=== PATIENT | female | born 1990 | race Caucasian/White ===

== ENCOUNTER 2018-02-01 20:30 | Emergency (ER) | payer MEDICAID, OTHER ==
[~2018-02-01] VITALS: Ht 170.2 cm; Wt 113.4 kg
[~2018-02-01 20:30] MED LIST: CRUT1EAC16 MC; ESTR-3; HYOS0.1283 SL; KETO10TA PO; TRAM50TA2 PO
--- NOTE | 2018-02-01 21:04 | Diagnostic Imaging Report ---
INDICATION: Fever and cough PA and lateral chest obtained at 9:19 p.m. Heart and mediastinal silhouette are normal in appearance. The lungs are clear. There is no pneumothorax or pleural fluid. IMPRESSION: Negative chest. Dictated by: Dictated on workstation # [id number]
[2018-02-01] MEDS ORDERED: AMOX-358 PO (21:24)
[2018-02-01] MEDS ORDERED: AUGMENTIN 875 MG TAB (AMOXICILLIN/CLAVULANATE) PO STA (21:24)
--- NOTE | 2018-02-01 21:24 | ED Respiratory ---
General Chief Complaint: Respiratory Problems Stated Complaint: POSS PNUEMONIA Nursing Triage Note: PT AMBULATED TO RM 6 W/O DIFFICULTIES. PT STATES SHE HAS BEEN RUNNING FEVER AND HAD COUGH FOR APPROXIMATELY 2 WEEKS. PT STATES SHE IS HAVING SINUS DRAINAGE AND COUGHING UP CLEAR/YELLOW SPUTUM. PT STATES FEVER HAS BEEN 101.2. PT LAST TOOK IBU AT 1840. Source: patient Exam Limitations: no limitations History of Present Illness Date Seen by Provider: Feb 01, 2018 Time Seen by Provider: 20:40 Initial Comments Here with report of 2 weeks of intermittent fever, cough, runny nose, sinus drainage, sinus congestion and chest congestion. He did take ibuprofen tonight. States it was worse overall tonight so she presented to the ER. Denies nausea or vomiting. Denies problems with the bathroom. Timing/Duration: week, getting worse Severity: moderate Prior Episodes/Possible Cause: occasional episodes Associated Symptoms: cough, fever/chills, nasal congestion, nasal drainage, shortness of breath, sinus infection; No sore throat, No wheezing Allergies and Home Medications Allergies Coded Allergies: codeine (Unverified Allergy, Unknown, 01/29/15) latex (Unverified Allergy, Unknown, 01/29/15) Uncoded Allergies: BEE STING (Allergy, Unknown, 01/29/15) Home Medications Hyoscyamine Sulfate 0.125 Mg Tab.subl, 1-2 TAB SL Q4H Prescribed by: STEVE ANTONIO on 09/29/152104 Ketorolac Tromethamine 10 Mg Tablet, 10 MG PO Q6H Prescribed by: STEVE ANTONIO on 09/29/152104 Tramadol Hcl 50 Mg Tablet, 50 MG PO Q4H PRN for PAIN Prescribed by: STEPHEN OCONNOR on 01/29/15 1620 Patient Home Medication List Home Medication List Reviewed: Yes Review of Systems Constitutional: see HPI; No chills; fever EENTM: no symptoms reported Respiratory: see HPI, cough, short of breath; No wheezing Cardiovascular: no symptoms reported Gastrointestinal: no symptoms reported Genitourinary: no symptoms reported Musculoskeletal: no symptoms reported Skin: no symptoms reported Psychiatric/Neurological: No Symptoms Reported Past Ankthdp-Vxrucg-Tqgvbo Hx Past Med/Social Hx: Reviewed Nursing Past Med/Soc Hx Patient Social History Alcohol Use: Denies Use Recreational Drug Use: No 2nd Hand Smoke Exposure: No Recent Foreign Travel: No Contact w/Someone Who Travel: No Recent Infectious Disease Expo: No Physical Abuse: No Sexual Abuse: No Seasonal Allergies Seasonal Allergies: No Past Medical History Surgeries: Yes (OVARIAN CYST REMOVAL AGE 14) Adenoidectomy, Tonsillectomy Respiratory: No Cardiac: No Neurological: Yes Headaches /Migraines : No Last Menstrual Period: Jan 02, 2018 Reproductive Disorders: Yes Female Reproductive Disorders: Menstrual Problems, Ovarian Cyst, Polycystic Ovarian Dis Genitourinary: No Gastrointestinal: Yes Irritable Bowel Musculoskeletal: No Endocrine: No Cancer: No Psychosocial: No Nursing Suicide Risk Score: 0 Integumentary: No Blood Disorders: Yes (VON WELLABRAND'S DISEASE) Family Medical History Reviewed Nursing Family Hx Physical Exam Vital Signs Vital Signs - First Documented 02/01/18 20:39 Temp 98.3 Pulse 98 Resp 16 B/P (MAP) 156/111 (126) O2 Delivery Room Air Capillary Refill : Less Than 3 Seconds General Appearance: WD/WN, no apparent distress HEENT: TMs normal, pharyngeal erythema, other (moderate bilateral nasal congestion with purulent rhinorrhea and erythema) Neck: full range of motion, supple Respiratory: lungs clear, normal breath sounds Cardiovascular: regular rate, rhythm, no murmur Extremities: non-tender, normal inspection Neurologic/Psychiatric: alert, oriented x 3 Skin: normal color, warm/dry Progress/Results/Core Measures Suspected Sepsis Recent Fever Within 48 Hours: Yes Infection Criteria Present: Suspected New Infection New/Unexplained Altered Menta: No Sepsis Screen: Possible Sepsis Risk SIRS Temperature:98.3 Pulse: 98 Respiratory Rate: 16 Blood Pressure 156 /111 Mean: 126 Results/Orders My Orders Orders - JARED VASQUEZ MD Chest Pa/Lat (2 View) (02/01/18 20:46) Vital Signs/I&O 02/01/18 20:39 Temp 98.3 Pulse 98 Resp 16 B/P (MAP) 156/111 (126) O2 Delivery Room Air Capillary Refill : Less Than 3 Seconds Blood Pressure Mean: 126 Progress Note : Progress Note Seen and evaluated. Chest x-ray ordered. Chest x-ray is negative. Patient has all findings of sinusitis so we will treat that. Discharged home with return precautions. Patient verbalize understanding instructions and agreement with plan. Diagnostic Imaging Diagonstic Imaging: Xray Plain Films/CT/US/NM/MRI: chest Comments VIA [facility]. [place], [place] NAME: LISA BALBUENA [facility] REC#: [id number] PT STATUS: REG ER : 1990 PHYSICIAN: JARED VASQUEZ MD ADMIT DATE: 02/01/18/ER Draft Date of Exam:02/01/18 CHEST PA/LAT (2 VIEW) INDICATION: Fever and cough PA and lateral chest obtained at 9:19 p.m. Heart and mediastinal silhouette are normal in appearance. The lungs are clear. There is no pneumothorax or pleural fluid. IMPRESSION: Negative chest. Dictated on workstation # [id number] Dict: 02/01/182100 Trans: 02/01/182102 [facility] [phone] Interpreted by: USHA BARRON MD Electronically signed by: Departure Impression Primary Impression: Acute sinusitis Qualified Codes: J01.90 - Acute sinusitis, unspecified Disposition: HOME, SELF-CARE Condition: Improved Departure-Patient Inst. Decision time for Depature: 21:22 Referrals: BETH HERNÁNDEZ MD (PCP/Family) Primary Care Physician Patient Instructions: Sinusitis, Adult (DC) Add. Discharge Instructions: All discharge instructions reviewed with patient and/or family. Voiced understanding. Drink plenty of fluids. Follow-up with your DrRodríguez in a few days for recheck. You may use Afrin nasal spray or the generic, 12 hour relief, 2 sprays to each nostril twice daily for 3 days only and then stop. Do not use more than 3 days. Return for worsening, fever, vomiting, weakness, breathing problems or other concerns as needed. Scripts Amoxicillin/Potassium Clav (Augmentin 875-125 Tablet) 1 Each Tablet 1 EACH PO BID, #14 TAB 0 Refills Prov: JARED VASQUEZ MD 02/01/18 JARED VASQUEZ MD Feb 01, 2018 21:24
[2018-02-01 21:31] VITALS: BP 135/89
--- OUTSIDE RECORDS SUMMARY | 2018-02-01 23:29 | XMS REPORT ---
Author Author SKYLER VILLEGAS [facility] Address [address] [place] [address] Care Team Providers Care Student Records Coordinator Name Role Phone SKYLER VILLEGAS Unavailable PROBLEMS Type Condition ICD9-CM Code DRC21-IB Code Onset Dates Condition Status SNOMED Code Problem Von Willebrand disease D68.0 Active 604926306 Problem Irritable bowel syndrome with diarrhea K58.0 Active 83163648 Problem Chronic migraine G43.709 Active 64526471 Problem Prediabetes R73.09 Active 7678029 Problem PCOS (polycystic ovarian syndrome) E28.2 Active 14059163 ALLERGIES No Information SOCIAL HISTORY Never Assessed PLAN OF CARE VITAL SIGNS MEDICATIONS Unknown Medications RESULTS No Results PROCEDURES No Known procedures IMMUNIZATIONS No Known Immunizations MEDICAL (GENERAL) HISTORY Type Description Date Medical History irritable bowel syndrome Medical History PCOS Medical History migraine headaches Medical History von willebrands disease Surgical History tonsillectomy and adenoidectomy at age 6 Surgical History ovarian cysts removed at age 15
--- OUTSIDE RECORDS SUMMARY | 2018-02-01 23:29 | XMS REPORT ---
Author Author SKYLER VILLEGAS eClinical[employer] Address Unknown Phone Unavailable Care Team Providers Care Lap Winder Name Role Phone SKYLER VILLEGAS CP Unavailable Allergies, Adverse Reactions, Alerts Substance Reaction Event Type Codeine Sulfate anaphylaxis Drug Allergy bee sting anaphylaxis Non Drug Allergy latex rash Non Drug Allergy Problems Problem Type Condition Code Onset Dates Condition Status Assessment Chronic migraine G43.709 Active Assessment Left hip pain M25.552 Active Problem Irritable bowel syndrome with diarrhea K58.0 Active Problem PCOS (polycystic ovarian syndrome) E28.2 Active Problem Chronic migraine G43.709 Active Assessment Acute sinusitis, recurrence not specified, unspecified location J01.90 Active Assessment Weight gain R63.5 Active Problem Prediabetes R73.09 Active Assessment Irritable bowel syndrome with diarrhea K58.0 Active Medications Medication Code System Code Instructions Start Date End Date Status Dosage Rifaximin [facility] [address]-36 550 MG Orally Three times a day May 22, 2015 Jun 05, 2015 1 tablet Phentermine HCl [facility] [address]-20 15 MG Orally Once a day May 22, 2015 1 capsule Phenergan [facility] [address]-82 25 MG Orally every 12 hrs 1 tablet as needed Procedures Procedure Coding System Code Date Office Visit, Est Pt., Level 4 CPT-4 83377 May 22, 2015 Vital Signs Date/Time: May 22, 2015 Temperature 97.0 F Weight 234.5 lbs Height 67 in BMI 36.72 Index Blood Pressure Diastolic 78 mmHg Blood Pressure Systolic 126 mmHg Cardiac Monitoring Heart Rate 78 bpm Results No Known Results Summary Purpose eClinicalWorks Submission
--- OUTSIDE RECORDS SUMMARY | 2018-02-01 23:29 | XMS REPORT ---
Author Author SKYLER VILLEGAS Organization [facility] Address [address] [place] [address] Care Team Providers Care Lockstitch Sleeve Maker Name Role Phone SKYLER VILLEGAS Unavailable PROBLEMS Type Condition ICD9-CM Code SEE56-LP Code Onset Dates Condition Status SNOMED Code Problem Von Willebrand disease D68.0 Active 506840911 Problem Irritable bowel syndrome with diarrhea K58.0 Active 52541866 Problem Chronic migraine G43.709 Active 59017040 Problem Prediabetes R73.09 Active 0737144 Problem PCOS (polycystic ovarian syndrome) E28.2 Active 33205993 ALLERGIES No Information SOCIAL HISTORY Never Assessed PLAN OF CARE VITAL SIGNS MEDICATIONS Medication Instructions Dosage Frequency Start Date End Date Duration Status EPINEPHrine 0.3 MG/0.3ML INJECT 0.3 MG INTRAMUSCULARLY ONCE PER DAY NEEDED FOR BEE STINGS Active RESULTS No Results PROCEDURES No Known procedures IMMUNIZATIONS No Known Immunizations MEDICAL (GENERAL) HISTORY Type Description Date Medical History irritable bowel syndrome Medical History PCOS Medical History migraine headaches Medical History von willebrands disease Surgical History tonsillectomy and adenoidectomy at age 6 Surgical History ovarian cysts removed at age 15
--- OUTSIDE RECORDS SUMMARY | 2018-02-01 23:29 | XMS REPORT ---
Author Author SKYLER VILLEGAS [facility] eClinicalWorks Address Unknown Phone Unavailable Care Team Providers Care Roof Shingler Name Role Phone SKYLER VILLEGAS Unavailable Allergies No Known Allergies Problems Problem Type Condition Code Onset Dates Condition Status Problem Irritable bowel syndrome with diarrhea K58.0 Active Problem PCOS (polycystic ovarian syndrome) E28.2 Active Problem Chronic migraine G43.709 Active Problem Prediabetes R73.09 Active Medications No Known Medications Results No Known Results Summary Purpose eClinicalWorks Submission
--- OUTSIDE RECORDS SUMMARY | 2018-02-01 23:29 | XMS REPORT ---
Author Author SKYLER VILLEGAS Organization [facility] Address [address] [place] [address] Care Team Providers Care Enamel Cracker Name Role Phone SKYLER VILLEGAS Unavailable PROBLEMS Type Condition ICD9-CM Code IWT56-KO Code Onset Dates Condition Status SNOMED Code Problem Von Willebrand disease D68.0 Active 980913876 Problem Irritable bowel syndrome with diarrhea K58.0 Active 98043380 Problem Chronic migraine G43.709 Active 06871697 Problem Prediabetes R73.09 Active 0140950 Problem PCOS (polycystic ovarian syndrome) E28.2 Active 12537443 ALLERGIES No Information SOCIAL HISTORY Never Assessed [...]
--- OUTSIDE RECORDS SUMMARY | 2018-02-01 23:29 | XMS REPORT ---
Author Author NELLY SKYLER [facility] Address [address] [place] [address] Care Team Providers Care Hydrographical Technical Officer Name Role Phone NELLYSOBIASKYLER Unavailable PROBLEMS Type Condition ICD9-CM Code XIR61-TU Code Onset Dates Condition Status SNOMED Code Problem Von Willebrand disease D68.0 Active 152813174 Problem Irritable bowel syndrome with diarrhea K58.0 Active 31296140 Problem Chronic migraine G43.709 Active 12033365 Problem Prediabetes R73.09 Active 3504106 Problem PCOS (polycystic ovarian syndrome) E28.2 Active 95585049 ALLERGIES No Information ENCOUNTERS Encounter Location Date Diagnosis [facility] [id number] [place] [phone] November, [address] [id number] [id number] Oct, [facility] [address] [place] [address] Sep, [facility] [address] [address] Sep, [facility] [address] [place] [phone] Sep, [facility] [address] [place] [address]- 8468 Sep, [facility] [id number] [place] [address]- [address]597 Oct, [facility] [address] [place] [address]- [address]30 Oct, Bee sting allergy Z91.038 [facility] [id number] [place] [address]83- [address] Oct, Sinusitis J32.9 [facility] [address] [place] [address]- [phone] Oct, [facility] [id number] [place] [address]- 480[address] Sep, [facility] [id number] [place] [address] 216[address]- [address] Sep, [facility] [id number] [place] [address]08- [phone] Sep, PCOS (polycystic ovarian syndrome) E28.2 and Von Willebrand disease D68.0 [place] [id number] [place] [address]- 8[address] Aug, PCOS (polycystic ovarian syndrome) E28.2 and Von Willebrand disease D68.0 [facility] [id number] [place] [address] 280[address]- 5872 Aug, [facility] [id number] [place] [address] 09485- 1029 Aug, Menometrorrhagia N92.1 and PCOS (polycystic ovarian syndrome ) E28.2 [place] [address] [address] May, [facility] [address] [address] May, [facility] [id number] [place] [address] 13893- 9196 Apr, Irritable bowel syndrome with diarrhea K58.0 ; Acute sinusitis, recurrence not specified, unspecified location J01.90 ; Weight gain R63.5 ; Chronic migraine G43.709 and Left hip pain M25.552 [facility] [address] [place] [address] Feb, Peroneal tendon tear 844.8 [facility] [id number] [address] Jan, [facility] [address] [place] [address] 138179- [address] Jan, Fracture, fibula closed, shaft 823.21 [place] [id number] [place] [address] 16[address]- 7757 Jan, Acute renal insufficiency 593.9 [place] [id number] [place] [address] 520245- [address] Jan, Von Willebrand disease 286.4 ; PCOS (polycystic ovarian syndrome) 256.4 and Prediabetes 790.29 [place] [id number] [place] [address] [phone] [phone] Dec, Chronic migraine 346.70 ; Irritable bowel syndrome with diarrhea 564.1 ; PCOS (polycystic ovarian syndrome) 256.4 ; Prediabetes 790.29 ; Von Willebrand disease 286.4 and Obesity 278.00 [place] [facility] [address] [place] [address] [phone]- [address]69 Oct, Urinary tract infection 599.0 and Diarrhea 787.91 IMMUNIZATIONS No Known Immunizations SOCIAL HISTORY Never Assessed REASON FOR VISIT Refill request PLAN OF CARE VITAL SIGNS MEDICATIONS Unknown Medications RESULTS No Results PROCEDURES No Known procedures INSTRUCTIONS MEDICATIONS ADMINISTERED No Known Medications MEDICAL (GENERAL) HISTORY Type Description Date Medical History irritable bowel syndrome Medical History PCOS Medical History migraine headaches Medical History von willebrands disease Surgical History tonsillectomy and adenoidectomy at age 6 Surgical History ovarian cysts removed at age 15
--- OUTSIDE RECORDS SUMMARY | 2018-02-01 23:30 | XMS REPORT | Continuity of Care Document ---
Author Author [facility] Address Unknown Phone Unavailable Allergies Active Description Code Type Severity Reaction Onset Reported/Identified Relationship to Patient Clinical Status Yes bee sting Drug Allergy N/A N/A 11/15/2014 Yes codeine Drug Allergy N/A N/A 11/15/2014 Yes latex Drug Allergy N/A N/A 11/15/2014 Yes BEE STING BEE STING Unknown N/A 01/29/2015 Yes codeine [id number] Drug Allergy Unknown N/A 01/29/2015 Yes latex [id number] Drug Allergy Unknown N/A 01/29/2015 Medications There is no data. Problems Date Dx Coded Attending Type Code Diagnosis Diagnosed By 06/24/1505 LIAN DYE MD, Ot D68.0 VON WILLEBRAND'S DISEASE 11/15/2014 LAMBERTO OBRIEN APRN R 346.90 HEADACHE, MIGRAINE 11/15/2014 LAMBERTO OBRIEN APRN R 564.1 IRRITABLE BOWEL SYNDROME 01/29/2015 STEPHEN WALKER Ot 824.8 FX ANKLE NOS-CLOSED 01/29/2015 STEPHEN WALKER Ot 959.7 LOWER LEG INJURY NOS 01/29/2015 STEPHEN WALKER Ot E000.8 OTHER EXTERNAL CAUSE STATUS 01/29/2015 STEPHEN WALKER Ot E849.0 ACCIDENT IN HOME 01/29/2015 STEPHEN WALKER Ot E927.0 OVEREXERTION FROM SUDDEN STRENUOUS MOVEM 09/29/2015 STEVE ANTONIO DO Ot D68.0 VON WILLEBRAND'S DISEASE 09/29/2015 STEVE ANTONIO DO Ot K58.9 IRRITABLE BOWEL SYNDROME WITHOUT DIARRHE 09/29/2015 STEVE ANTONIO DO Ot R10.31 RIGHT LOWER QUADRANT PAIN 09/29/2015 STEVE ANTONIO DO Ot R31.2 OTHER MICROSCOPIC HEMATURIA 11/22/2015 LIAN DYE MD, Ot D68.0 VON WILLEBRAND'S DISEASE 11/22/2015 IAN PAINTER, RUBY Ot D68.0 VON WILLEBRAND'S DISEASE 01/08/2016 IAN PAINTER, RUBY Ot D68.0 VON WILLEBRAND'S DISEASE 01/22/2016 IAN PAINTER, RUBY Ot D68.0 VON WILLEBRAND'S DISEASE Procedures There is no data. Results Test Result Range TSH - 11/01/17 12:39 TSH 1.35 mIU/L NRG Encounters ACCT No. Visit Date/Time Discharge Status Pt. Type Provider Facility Loc./Unit Complaint [id number] 11/15/2014 09:52:00 11/15/2014 23:59:59 CLS Outpatient LAMBERTO OBRIEN APRN [id number] 11/25/2015 15:06:00 11/25/2015 23:59:59 CLS Preadmit IAN PAINTER, RUBY [facility] ONC [id number] 11/01/2015 13:47:00 11/22/2015 15:06:00 DIS Outpatient LIAN DYE MD [facility] ONC [id number] 09/29/2015 18:38:00 09/29/2015 21:24:00 DIS Emergency STEVE ANTONIO DO [facility] ER [id number] 01/29/2015 15:20:00 01/29/2015 16:40:00 DIS Emergency STEPHEN WALKER [facility] [place] [id number] 01/17/2018 09:00:00 01/17/2018 23:59:59 CLS Outpatient SKYLER VILLEGAS MD [facility] [id number] 11/01/2017 10:00:00 Document Registration
== END 2018-02-01 21:33 | disposition home or self-care (01) ==
LOC: EDUNIT# 20:30 → ER 20:32
DX: J01.90 Acute sinusitis, unspecified (principal); G43.909 Migraine, unspecified, not intractable, without status migrainosus; Z91.040 Latex allergy status; Z88.5 Allergy status to narcotic agent; Z91.030 Bee allergy status; Z90.89 Acquired absence of other organs
CPT/HCPCS: 71046

== ENCOUNTER 2018-05-29 16:26 | Emergency (ER) | payer MEDICAID ==
[~2018-05-29] VITALS: Ht 170.2 cm; Wt 113.4 kg
[~2018-05-29 16:26] MED LIST changes: +AMOX-358 PO
--- OUTSIDE RECORDS SUMMARY | 2018-05-29 17:04 | XMS REPORT ---
Author Author BETH HERNÁNDEZ Organization [facility] Address [address] [place] [address] Care Team Providers Care Caramel Cutter Helper Name Role Phone BETH HERNÁNDEZ Unavailable PROBLEMS Type Condition ICD9-CM Code CWQ11-UF Code Onset Dates Condition Status SNOMED Code Problem Chronic migraine G43.709 Active 90577341 Problem Irritable bowel syndrome with diarrhea K58.0 Active 92352132 Problem PCOS (polycystic ovarian syndrome) E28.2 Active 38374827 Problem Von Willebrand disease D68.0 Active 943998210 Problem Reactive depression F32.9 Active 35043883 Problem Body mass index (BMI) of 40.0-44.9 in adult Z68.41 Active 839231446 Problem Type 2 diabetes mellitus with complication, without long-term current use of insulin E11.8 Active 24743895 Problem Hematuria, unspecified type R31.9 Active 08860937 Problem Stage 1 chronic kidney disease N18.1 Active 738463586 ALLERGIES No Information ENCOUNTERS Encounter Location Date Diagnosis [place] [address] [place] [address] 64322- 7804 10 Mar, 2018 Chronic migraine G43.709 [place] [address] [place] [id number] [place] [address] 13020- 5118 07 Mar, 2018 [place] [address] [place] [id number] [place] [address] 29332- 2906 06 Mar, 2018 Sinusitis J32.9 [place] [address] [place] [id number] [place] [address] 75105- 8269 14 Feb, 2018 Chronic migraine G43.709 ; Hematuria, unspecified type R31.9 ; Reactive depression F32.9 ; Von Willebrand disease D68.0 and BMI 40.0- 44.9, adult Z68.41 [place] [address] [place] [id number] [address] 6812 Feb, Chronic migraine G43.709 [place] [address] [place] [id number] [place] [address] 32571- 3468 Feb, Stage 1 chronic kidney disease N18.1 ; Von Willebrand disease D68.0 ; BMI 40.0-44.9, adult Z68.41 and Other microscopic hematuria R31.29 [place] [address] [place] [id number] [place] [address] 05523- 6749 Jan, [place] [address] [place] [id number] [place] [address] 62414- 4457 Jan, Acute recurrent maxillary sinusitis J01.01 and BMI 40.0-44.9 , adult Z68.41 [place] [address] [place] [address] 13423- 7136 Jan, [place] [address] [place] [address] 63289- 7834 Dec, [place] [address] [place] [address] 71959- 6191 Dec, Chronic migraine G43.709 [place] [address] [place] [address] 97075- 5601 Dec, Chronic migraine G43.709 ; Type 2 diabetes mellitus without complication, without long-term current use of insulin E11.9 and BMI 40.0-44.9, adult Z68.[address] [id number] [id number] Dec, [facility] [address] [facility] [address] [id number] [id number] Oct, [facility] [address] [facility] [address] [address] [address] [id number] [id number] Oct, Prediabetes R73.09 ; Type 2 diabetes mellitus with complication, without long-term current use of insulin E11.8 ; Body mass index (BMI) of 40.0- 44.9 in adult Z68.41 ; Morbid (severe) obesity due to excess calories E66.01 ; Intractable chronic migraine without aura and without status migrainosus G43.719 and Chronic migraine G43.709 [facility] [address] [place] [id number] [place] [address] 91742- 5754 15 Sep, 2017 [facility] [address] [place] [id number] [place] [address] 52292- 6780 Sep, [facility] [address] 32574- 8169 Sep, [facility] [address] [place] [id number] [place] [address] 14304- 7071 Sep, [facility] [address] 75405- 7883 Oct, [place] [address] 63696- 4951 Oct, Bee sting allergy Z91.038 [facility] [address] [place] [id number] [place] [address] 84015- 1092 Oct, Sinusitis J32.9 [place] [address] 46864- 6050 Oct, [facility] [address] [place] [id number] [place] [address] 30715- 2761 Sep, [place] [address] [place] [id number] [place] [address] 77987- 2899 Sep, [facility] [address] [place] [id number] [place] [address] 79357- 9112 Sep, PCOS (polycystic ovarian syndrome) E28.2 and Von Willebrand disease D68.0 [place] [address] [place] [id number] [place] [address] 86093- 1735 Aug, PCOS (polycystic ovarian syndrome) E28.2 and Von Willebrand disease D68.0 [place] [address] [place] [id number] [place] [address] 82980- 3588 Aug, [place] [address] [place] [id number] [place] [address] 23456- 0963 Aug, Menometrorrhagia N92.1 and PCOS (polycystic ovarian syndrome ) E28.2 [place] [id number] [place] [address] 44270- 9311 May, [address] 81206- 9350 May, [place] [id number] [place] [address] 04954- 4850 Apr, Irritable bowel syndrome with diarrhea K58.0 ; Acute sinusitis, recurrence not specified, unspecified location J01.90 ; Weight gain R63.5 ; Chronic migraine G43.709 and Left hip pain M25.[address] 18586- 0837 Feb, Peroneal tendon tear 844.[address] 69004- 7836 Jan, [address] 98154- 7543 Jan, Fracture, fibula closed, shaft 823.[address] 62811- 7288 Jan, Acute renal insufficiency 593.[address] 81683- 9401 Jan, Von Willebrand disease 286.4 ; PCOS (polycystic ovarian syndrome) 256.4 and Prediabetes 790.[address] 25141- 1262 Dec, Chronic migraine 346.70 ; Irritable bowel syndrome with diarrhea 564.1 ; PCOS (polycystic ovarian syndrome) 256.4 ; Prediabetes 790.29 ; Von Willebrand disease 286.4 and Obesity 278.00 [place] [id number] [address] 8641 Oct, Urinary tract infection 599.0 and Diarrhea 787.91 IMMUNIZATIONS No Known Immunizations SOCIAL HISTORY Never Assessed REASON FOR VISIT Hospital f/u Pt in for fu from [facility]. JEFERSON Bridges PLAN OF CARE Activity Details Follow Up Will call after culture Reason: VITAL SIGNS Height 67 in 2018-02-24 Weight 268.6 lbs 2018-02-24 Temperature 98.7 degrees Fahrenheit 2018-02-24 Heart Rate 96 bpm 2018-02-24 Respiratory Rate 20 2018-02-24 BMI 42.06 kg/m2 2018-02-24 Blood pressure systolic 152 mmHg 2018-02-24 Blood pressure diastolic 94 mmHg 2018-02-24 MEDICATIONS Medication Instructions Dosage Frequency Start Date End Date Duration Status EpiPen 2-Yosef 0.3 MG/0.3ML as directed Oct, Active Butorphanol Tartrate 10 MG/ML Nasally Once a day 1 spray as needed 24h 28 Active Stimate 1.5 MG/ML Active Invokana 100 mg Orally Once a day 1 tablet 24h Dec, Active Wellbutrin XL 300 MG Orally Once a day 1 tablet in the morning 24h 30 days Active RESULTS No Results PROCEDURES Procedure Date Ordered Result Body Site LAB NOT BILLED BY [facility] Feb 24, 2018 INSTRUCTIONS MEDICATIONS ADMINISTERED No Known Medications MEDICAL (GENERAL) HISTORY Type Description Date Medical History irritable bowel syndrome Medical History PCOS Medical History migraine headaches Medical History von willebrands disease Medical History pre-diabetes Surgical History tonsillectomy and adenoidectomy at age 6 Surgical History ovarian cysts removed at age 15
--- OUTSIDE RECORDS SUMMARY | 2018-05-29 17:04 | XMS REPORT ---
Author Author BETH HERNÁNDEZ Organization [facility] Address [address] [place] [address] Care Team Providers Care Environmental Construction Engineer Name Role Phone BETH HERNÁNDEZ Unavailable PROBLEMS Type Condition ICD9-CM Code XSU12-KC Code Onset Dates Condition Status SNOMED Code Problem Chronic migraine G43.709 Active 20774878 Problem Irritable bowel syndrome with diarrhea K58.0 Active 36914225 Problem PCOS (polycystic ovarian syndrome) E28.2 Active 62142884 Problem Von Willebrand disease D68.0 Active 629516192 Problem Reactive depression F32.9 Active 34002141 Problem Body mass index (BMI) of 40.0-44.9 in adult Z68.41 Active 017603429 Problem Type 2 diabetes mellitus with complication, without long-term current use of insulin E11.8 Active 64345161 Problem Hematuria, unspecified type R31.9 Active 25374859 Problem Stage 1 chronic kidney disease N18.1 Active 207731361 ALLERGIES No Information ENCOUNTERS Encounter Location Date Diagnosis [place] [address] [place] [address] 65559- 9497 10 Mar, 2018 Chronic migraine G43.709 [place] [address] [place] [id number] [place] [address] 02017- 1225 Mar, [place] [address] [place] [id number] [place] [address] 41176- 9818 06 Mar, 2018 Sinusitis J32.9 [place] [address] [place] [id number] [place] [address] 55470- 9445 14 Feb, 2018 Chronic migraine G43.709 ; Hematuria, unspecified type R31.9 ; Reactive depression F32.9 ; Von Willebrand disease D68.0 and BMI 40.0- 44.9, adult Z68.41 [place] [address] [id number] [address] 4179 Feb, Chronic migraine G43.709 [place] [address] [place] [id number] [place] [address] 38783- 5536 Feb, Stage 1 chronic kidney disease N18.1 ; Von Willebrand disease D68.0 ; BMI 40.0-44.9, adult Z68.41 and Other microscopic hematuria R31.29 [place] [address] [place] [id number] [place] [address] 85166- 6844 Jan, [place] [address] [place] [id number] [place] [address] 27364- 1127 Jan, Acute recurrent maxillary sinusitis J01.01 and BMI 40.0-44.9 , adult Z68.41 [place] [address] [place] [address] 10676- 8521 Jan, [place] [address] [place] [address] 58847- 2475 Dec, [place] [address] [place] [address] 91739- 4339 Dec, Chronic migraine G43.709 [place] [address] [place] [address] 73502- 5483 Dec, Chronic migraine G43.709 ; Type 2 diabetes mellitus without complication, without long-term current use of insulin E11.9 and BMI 40.0-44.9, adult Z68.[address] [id number] [id number] Dec, [facility] [address] [facility] [address] [id number] [id number] Oct, [facility] [address] [id number] [place] [id number] Oct, Prediabetes R73.09 ; Type 2 diabetes mellitus with complication, without long-term current use of insulin E11.8 ; Body mass index (BMI) of 40.0- 44.9 in adult Z68.41 ; Morbid (severe) obesity due to excess calories E66.01 ; Intractable chronic migraine without aura and without status migrainosus G43.719 and Chronic migraine G43.709 [facility] [address] [place] [id number] [place] [address] 33404- 6210 15 Sep, 2017 [facility] [address] [place] [id number] [place] [address] 12083- 6289 Sep, [facility] [address] 17387- 6831 Sep, [facility] [address] [place] [id number] [place] [address] 86358- 8606 Sep, [facility] [address] 33896- 9671 Oct, [place] [address] 34659- 4753 Oct, Bee sting allergy Z91.038 [facility] [address] [place] [id number] [place] [address] 99807- 6208 Oct, Sinusitis J32.9 [place] [address] 08331- 6911 Oct, [facility] [address] [place] [id number] [place] [address] 06200- 6694 Sep, [place] [address] [place] [id number] [place] [address] 65107- 1713 Sep, [facility] [address] [place] [id number] [place] [address] 68732- 5616 Sep, PCOS (polycystic ovarian syndrome) E28.2 and Von Willebrand disease D68.0 [place] [address] [place] [id number] [place] [address] 32476- 0501 Aug, PCOS (polycystic ovarian syndrome) E28.2 and Von Willebrand disease D68.0 [place] [address] [place] [id number] [place] [address] 35297- 0579 Aug, [place] [address] [place] [id number] [place] [address] 18480- 3479 Aug, Menometrorrhagia N92.1 and PCOS (polycystic ovarian syndrome ) E28.2 [place] [id number] [place] [address] 79513- 0840 May, [address] 69009- 3563 May, [place] [id number] [place] [address] 99995- 9007 Apr, Irritable bowel syndrome with diarrhea K58.0 ; Acute sinusitis, recurrence not specified, unspecified location J01.90 ; Weight gain R63.5 ; Chronic migraine G43.709 and Left hip pain M25.[address] 32502- 5505 Feb, Peroneal tendon tear 844.[address] 75092- 3288 Jan, [address] 70654- 2986 Jan, Fracture, fibula closed, shaft 823.[address] 44821- 3723 Jan, Acute renal insufficiency 593.[address] 69442- 4591 Jan, Von Willebrand disease 286.4 ; PCOS (polycystic ovarian syndrome) 256.4 and Prediabetes 790.[address] 32441- 4163 Dec, Chronic migraine 346.70 ; Irritable bowel syndrome with diarrhea 564.1 ; PCOS (polycystic ovarian syndrome) 256.4 ; Prediabetes 790.29 ; Von Willebrand disease 286.4 and Obesity 278.00 [place] [id number] [address]- 7139 Oct, Urinary tract infection 599.0 and Diarrhea [...]
--- OUTSIDE RECORDS SUMMARY | 2018-05-29 17:04 | XMS REPORT ---
Author Author BETH HERNÁNDEZ [facility] Address [address] [place] [address] Care Team Providers Care Correctional Case Records Supervisor Name Role Phone BETH HERNÁNDEZ Unavailable PROBLEMS Type Condition ICD9-CM Code HVW10-ZM Code Onset Dates Condition Status SNOMED Code Problem Chronic migraine G43.709 Active 74751894 Problem Irritable bowel syndrome with diarrhea K58.0 Active 48708172 Problem PCOS (polycystic ovarian syndrome) E28.2 Active 41315934 Problem Von Willebrand disease D68.0 Active 788656570 Problem Reactive depression F32.9 Active 22632772 Problem Body mass index (BMI) of 40.0-44.9 in adult Z68.41 Active 981481615 Problem Type 2 diabetes mellitus with complication, without long-term current use of insulin E11.8 Active 17904728 Problem Hematuria, unspecified type R31.9 Active 05018309 Problem Stage 1 chronic kidney disease N18.1 Active 648926565 ALLERGIES No Information ENCOUNTERS Encounter Location Date Diagnosis [place] [address] [place] [address] 93983- 7080 Apr, [place] [address] [place] [id number] [place] [address] 14947- 7082 Apr, Chronic migraine G43.709 [facility] [address] [place] [id number] [place] [address] 14861- 8325 Mar, Chronic migraine G43.709 [place] [address] [place] [id number] [place] [address] 68345- 6014 Mar, [place] [address] [place] [id number] [place] [address] 10054- 2656 Mar, Sinusitis J32.9 [place] [address] 72007- 3994 Feb, Chronic migraine G43.709 ; Hematuria, unspecified type R31.9 ; Reactive depression F32.9 ; Von Willebrand disease D68.0 and BMI 40.0- 44.9, adult Z68.41 [place] [address] [place] [address] 02188- 5870 Feb, Chronic migraine G43.709 [place] [address] [place] [id number] [place] [address] 05206- 2008 Feb, Stage 1 chronic kidney disease N18.1 ; Von Willebrand disease D68.0 ; BMI 40.0-44.9, adult Z68.41 and Other microscopic hematuria R31.29 [place] [address] [place] [id number] [place] [address] 21365- 6552 Jan, [place] [address] [place] [id number] [place] [address] 06379- 2196 Jan, Acute recurrent maxillary sinusitis J01.01 and BMI 40.0-44.9 , adult Z68.41 [place] [address] [place] [id number] [place] [address] 04035- 9094 Jan, [place] [address] [place] [id number] [place] [address] 45063- 5552 Dec, [place] [address] [place] [id number] [place] [address] 83404- 5378 Dec, Chronic migraine G43.709 [place] [address] [place] [id number] [place] [address] 44902- 5805 Dec, Chronic migraine G43.709 ; Type 2 diabetes mellitus without complication, without long-term current use of insulin E11.9 and BMI 40.0-44.9, adult Z68.41 [facility] [id number] [id number] Dec, [facility] [address] [id number] [id number] Oct, [facility] [address] [id number] [place] [id number] Oct, Prediabetes R73.09 ; Type 2 diabetes mellitus with complication, without long-term current use of insulin E11.8 ; Body mass index (BMI) of 40.0- 44.9 in adult Z68.41 ; Morbid (severe) obesity due to excess calories E66.01 ; Intractable chronic migraine without aura and without status migrainosus G43.719 and Chronic migraine G43.709 [place] [address] [place] [address] 67828- 8870 Sep, [place] [address] [place] [id number] [place] [address] 58283- 6446 Sep, [place] [address] [place] [id number] [place] [address] 70091- 1374 Sep, [place] [address] [place] [id number] [place] [address] 42678- 1321 Sep, [place] [address] [place] [id number] [place] [address] 25407- 8832 Oct, [place] [address] [place] [id number] [place] [address] 05813- 3567 Oct, Bee sting allergy Z91.038 [place] [address] [place] [id number] [place] [address] 75675- 9238 Oct, Sinusitis J32.9 [place] [address] [place] [id number] [place] [address] 13599- 6631 Oct, [place] [address] [place] [id number] [place] [address] 01772- 6759 Sep, [place] [address] [place] [id number] [place] [address] 97450- 3375 Sep, [place] [address] [place] [id number] [place] [address] 37349- 9540 Sep, PCOS (polycystic ovarian syndrome) E28.2 and Von Willebrand disease D68.0 [place] [address] [place] [id number] [place] [address] 20142- 4844 Aug, PCOS (polycystic ovarian syndrome) E28.2 and Von Willebrand disease D68.0 [place] [address] [place] [id number] [place] [address] 77768- 0762 Aug, [place] [address] [place] [id number] [place] [address] 68671- 6072 Aug, Menometrorrhagia N92.1 and PCOS (polycystic ovarian syndrome ) E28.2 [place] [address] [place] [id number] [place] [address] 36231- 3918 May, [place] [address] 86690- 5320 May, [place] [address] [place] [id number] [place] [address] 80588- 0454 Apr, Irritable bowel syndrome with diarrhea K58.0 ; Acute sinusitis, recurrence not specified, unspecified location J01.90 ; Weight gain R63.5 ; Chronic migraine G43.709 and Left hip pain M25.552 [place] [address] 79196- 6943 Feb, Peroneal tendon tear 844.8 [place] [address] [place] [id number] [place] [address] 89048- 3081 Jan, [place] [address] [place] [id number] [place] [address] 86276- 8648 Jan, Fracture, fibula closed, shaft 823.21 [place] [address] [place] [id number] [place] [address] 30975- 2941 Jan, Acute renal insufficiency 593.9 [place] [address] 97119- 0247 Jan, Von Willebrand disease 286.4 ; PCOS (polycystic ovarian syndrome) 256.4 and Prediabetes 790.29 [place] [address] [place] [address]- 6523 Dec, Chronic migraine 346.70 ; Irritable bowel syndrome with diarrhea 564.1 ; PCOS (polycystic ovarian syndrome) 256.4 ; Prediabetes 790.29 ; Von Willebrand disease 286.4 and Obesity 278.00 [facility] [address] [facility] [id number] [place] [address]- 5427 Oct, Urinary tract infection 599.0 and Diarrhea 787.91 IMMUNIZATIONS No Known Immunizations SOCIAL HISTORY Never Assessed REASON FOR VISIT Controlled Med Refill PLAN OF CARE VITAL SIGNS MEDICATIONS Medication Instructions Dosage Frequency Start Date End Date Duration Status Butorphanol Tartrate 10 MG/ML Nasally Once a day 1 spray as needed 24h 28 Active RESULTS No Results PROCEDURES No Known procedures INSTRUCTIONS MEDICATIONS ADMINISTERED No Known Medications MEDICAL (GENERAL) HISTORY Type Description Date Medical History irritable bowel syndrome Medical History PCOS Medical History migraine headaches Medical History von willebrands disease Medical History pre-diabetes Surgical History tonsillectomy and adenoidectomy at age 6 Surgical History ovarian cysts removed at age 15
--- OUTSIDE RECORDS SUMMARY | 2018-05-29 17:04 | XMS REPORT ---
Author Author BETH HERNÁNDEZ Organization [facility] Address [address] [place] [address] Care Team Providers Care Nautical Instrument Mechanic Name Role Phone BETH HERNÁNDEZ Unavailable PROBLEMS Type Condition ICD9-CM Code ONL86-WD Code Onset Dates Condition Status SNOMED Code Problem Chronic migraine G43.709 Active 15922862 Problem Irritable bowel syndrome with diarrhea K58.0 Active 05557467 Problem PCOS (polycystic ovarian syndrome) E28.2 Active 14254538 Problem Von Willebrand disease D68.0 Active 675116659 Problem Reactive depression F32.9 Active 51449252 Problem Body mass index (BMI) of 40.0-44.9 in adult Z68.41 Active 460496864 Problem Type 2 diabetes mellitus with complication, without long-term current use of insulin E11.8 Active 30768052 Problem Hematuria, unspecified type R31.9 Active 44867079 Problem Stage 1 chronic kidney disease N18.1 Active 921186036 ALLERGIES No Information ENCOUNTERS Encounter Location Date Diagnosis [place] [address] [place] [address] 10219- 4470 10 Mar, 2018 Chronic migraine G43.709 [place] [address] [place] [id number] [place] [address] 51892- 1416 Mar, [place] [address] [place] [id number] [place] [address] 83588- 5007 06 Mar, 2018 Sinusitis J32.9 [place] [address] [place] [id number] [place] [address] 23251- 7089 14 Feb, 2018 Chronic migraine G43.709 ; Hematuria, unspecified type R31.9 ; Reactive depression F32.9 ; Von Willebrand disease D68.0 and BMI 40.0- 44.9, adult Z68.41 [place] [address] [id number] [address] 6672 Feb, Chronic migraine G43.709 [place] [address] [place] [id number] [place] [address] 48921- 7599 Feb, Stage 1 chronic kidney disease N18.1 ; Von Willebrand disease D68.0 ; BMI 40.0-44.9, adult Z68.41 and Other microscopic hematuria R31.29 [place] [address] [place] [id number] [place] [address] 65765- 8441 Jan, [place] [address] [place] [id number] [place] [address] 65974- 0469 Jan, Acute recurrent maxillary sinusitis J01.01 and BMI 40.0-44.9 , adult Z68.41 [place] [address] [place] [address] 78807- 1882 Jan, [place] [address] [place] [address] 62117- 7037 Dec, [place] [address] [place] [address] 52938- 8209 Dec, Chronic migraine G43.709 [place] [address] [place] [address] 01770- 0357 Dec, Chronic migraine G43.709 ; Type 2 diabetes mellitus without complication, without long-term current use of insulin E11.9 and BMI 40.0-44.9, adult Z68.[address] [id number] [id number] Dec, [facility] [address] [facility] [address] [id number] [id number] Oct, [facility] [address] [facility] [address] [id number] [id number] Oct, Prediabetes R73.09 ; Type 2 diabetes mellitus with complication, without long-term current use of insulin E11.8 ; Body mass index (BMI) of 40.0- 44.9 in adult Z68.41 ; Morbid (severe) obesity due to excess calories E66.01 ; Intractable chronic migraine without aura and without status migrainosus G43.719 and Chronic migraine G43.709 [facility] [address] [place] [id number] [place] [address] 97934- 7240 15 Sep, 2017 [facility] [address] [place] [id number] [place] [address] 22638- 7028 Sep, [facility] [address] 32779- 7054 Sep, [facility] [address] [place] [id number] [place] [address] 80045- 7177 Sep, [facility] [address] 79111- 6677 Oct, [place] [address] 18754- 7151 Oct, Bee sting allergy Z91.038 [facility] [address] [place] [id number] [place] [address] 96018- 3977 Oct, Sinusitis J32.9 [place] [address] 39411- 3817 Oct, [facility] [address] [place] [id number] [place] [address] 94105- 5609 Sep, [place] [address] [place] [id number] [place] [address] 56100- 0462 Sep, [facility] [address] [place] [id number] [place] [address] 66593- 8054 Sep, PCOS (polycystic ovarian syndrome) E28.2 and Von Willebrand disease D68.0 [place] [address] [place] [id number] [place] [address] 04560- 1468 Aug, PCOS (polycystic ovarian syndrome) E28.2 and Von Willebrand disease D68.0 [place] [address] [place] [id number] [place] [address] 70569- 4637 Aug, [place] [address] [place] [id number] [place] [address] 39411- 9979 Aug, Menometrorrhagia N92.1 and PCOS (polycystic ovarian syndrome ) E28.2 [place] [id number] [place] [address] 45955- 7350 May, [address] 37596- 4948 May, [place] [id number] [place] [address] 82260- 1311 Apr, Irritable bowel syndrome with diarrhea K58.0 ; Acute sinusitis, recurrence not specified, unspecified location J01.90 ; Weight gain R63.5 ; Chronic migraine G43.709 and Left hip pain M25.[address] 27332- 1230 Feb, Peroneal tendon tear 844.[address] 84708- 1535 Jan, [address] 61929- 7108 Jan, Fracture, fibula closed, shaft 823.[address] 05115- 0694 Jan, Acute renal insufficiency 593.[address] 86529- 1375 Jan, Von Willebrand disease 286.4 ; PCOS (polycystic ovarian syndrome) 256.4 and Prediabetes 790.[address] 45467- 4614 Dec, Chronic migraine 346.70 ; Irritable bowel syndrome with diarrhea 564.1 ; PCOS (polycystic ovarian syndrome) 256.4 ; Prediabetes 790.29 ; Von Willebrand disease 286.4 and Obesity 278.00 [place] [id number] [address]- 7019 Oct, Urinary tract infection 599.0 and Diarrhea [...]
--- OUTSIDE RECORDS SUMMARY | 2018-05-29 17:04 | XMS REPORT ---
Author Author BETH HERNÁNDEZ Organization [facility] Address [address] [place] [address] Care Team Providers Care Rejogger Name Role Phone BETH HERNÁNDEZ Unavailable PROBLEMS Type Condition ICD9-CM Code YEE31-FW Code Onset Dates Condition Status SNOMED Code Problem Chronic migraine G43.709 Active 26335484 Problem Irritable bowel syndrome with diarrhea K58.0 Active 41692673 Problem PCOS (polycystic ovarian syndrome) E28.2 Active 73744858 Problem Von Willebrand disease D68.0 Active 025846360 Problem Reactive depression F32.9 Active 25422472 Problem Body mass index (BMI) of 40.0-44.9 in adult Z68.41 Active 743696721 Problem Type 2 diabetes mellitus with complication, without long-term current use of insulin E11.8 Active 41515490 Problem Hematuria, unspecified type R31.9 Active 23882895 Problem Stage 1 chronic kidney disease N18.1 Active 872516475 ALLERGIES No Information ENCOUNTERS Encounter Location Date Diagnosis [place] [address] [place] [address] 28401- 6979 10 Mar, 2018 Chronic migraine G43.709 [place] [address] [place] [id number] [place] [address] 61844- 3476 Mar, [place] [address] [place] [id number] [place] [address] 64207- 7615 06 Mar, 2018 Sinusitis J32.9 [place] [address] [place] [id number] [place] [address] 65309- 0909 14 Feb, 2018 Chronic migraine G43.709 ; Hematuria, unspecified type R31.9 ; Reactive depression F32.9 ; Von Willebrand disease D68.0 and BMI 40.0- 44.9, adult Z68.41 [place] [address] [place] [address]- 9336 Feb, Chronic migraine G43.709 [place] [address] [place] [address] [place] [address] 55057- 7711 Feb, Stage 1 chronic kidney disease N18.1 ; Von Willebrand disease D68.0 ; BMI 40.0-44.9, adult Z68.41 and Other microscopic hematuria R31.29 [place] [address] [place] [id number] [place] [address] 75699- 2566 Jan, [place] [address] [place] [address] [place] [address] 64270- 2860 Jan, Acute recurrent maxillary sinusitis J01.01 and BMI 40.0-44.9 , adult Z68.41 [place] [address] [place] [address] 20311- 4666 Jan, [place] [address] [place] [address] 94318- 4774 Dec, [place] [address] [place] [address] 97771- 2087 Dec, Chronic migraine G43.709 [place] [address] [place] [address] 07734- 4197 Dec, Chronic migraine G43.709 ; Type 2 diabetes mellitus without complication, without long-term current use of insulin E11.9 and BMI 40.0-44.9, adult Z68.[address] [id number] [id number] Dec, [facility] [address] [facility] [address] [id number] [id number] Oct, [facility] [address] [facility] [address] [id number] [id number] Oct, Prediabetes R73.09 ; Type 2 diabetes mellitus with complication, without long-term current use of insulin E11.8 ; Body mass index (BMI) of 40.0- 44.9 in adult Z68.41 ; Morbid (severe) obesity due to excess calories E66.01 ; Intractable chronic migraine without aura and without status migrainosus G43.719 [address] Chronic migraine G43.709 [facility] [address] [place] [id number] [place] [address] 17526- 4058 [address], 2017 [facility] [address] [place] [id number] [place] [address] 37243- 5299 Sep, [facility] [address] 12095- 4498 Sep, [facility] [address] [place] [id number] [place] [address] 34487- 5455 Sep, [facility] [address] 98224- 9534 Oct, [place] [address] 30954- 6752 Oct, Bee sting allergy Z91.038 [facility] [address] [place] [id number] [place] [address] 22716- 6317 Oct, Sinusitis J32.9 [place] [address] 21592- 2168 Oct, [facility] [address] [place] [id number] [place] [address] 17171- 0890 Sep, [place] [address] [place] [id number] [place] [address] 52109- 2267 Sep, [facility] [address] [place] [id number] [place] [address] 30091- 2668 Sep, PCOS (polycystic ovarian syndrome) E28.2 and Von Willebrand disease D68.0 [place] [address] [place] [id number] [place] [address] 00675- 3759 Aug, PCOS (polycystic ovarian syndrome) E28.2 and Von Willebrand disease D68.0 [place] [address] [place] [id number] [place] [address] 80729- 5750 Aug, [place] [address] [place] [id number] [place] [address] 80484- 9338 Aug, Menometrorrhagia N92.1 and PCOS (polycystic ovarian syndrome ) E28.2 [place] [address] [place] [address] 84810- 0155 May, [address] 51786- 7210 May, [place] [address] [place] [address] 49044- 0783 Apr, Irritable bowel syndrome with diarrhea K58.0 ; Acute sinusitis, recurrence not specified, unspecified location J01.90 ; Weight gain R63.5 ; Chronic migraine G43.709 and Left hip pain M25.[address] 80323- 7547 Feb, Peroneal tendon tear 844.[address] 50577- 0922 Jan, [address] 15304- 7625 Jan, Fracture, fibula closed, shaft 823.[address] 91264- 2120 Jan, Acute renal insufficiency 593.[address] 82541- 1101 Jan, Von Willebrand disease 286.4 ; PCOS (polycystic ovarian syndrome) 256.4 and Prediabetes 790.[address] 74285- 6883 Dec, Chronic migraine 346.70 ; Irritable bowel syndrome with diarrhea 564.1 ; PCOS (polycystic ovarian syndrome) 256.4 ; Prediabetes 790.29 ; Von Willebrand disease 286.4 and Obesity 278.00 [place] [id number] [address]- 0334 Oct, Urinary tract infection 599.0 and Diarrhea 787.91 IMMUNIZATIONS No Known Immunizations SOCIAL HISTORY Never Assessed REASON FOR VISIT Refill request PLAN OF CARE VITAL SIGNS MEDICATIONS Medication Instructions Dosage Frequency Start Date End Date Duration Status Nasonex 50 MCG/ACT Nasally Once a day 2 sprays in each nostril 24h Oct, 30 day(s) Active RESULTS No Results PROCEDURES No Known procedures INSTRUCTIONS MEDICATIONS ADMINISTERED No Known Medications MEDICAL (GENERAL) HISTORY Type Description Date Medical History irritable bowel syndrome Medical History PCOS Medical History migraine headaches Medical History von willebrands disease Medical History pre-diabetes Surgical History tonsillectomy and adenoidectomy at age 6 Surgical History ovarian cysts removed at age 15
--- OUTSIDE RECORDS SUMMARY | 2018-05-29 17:05 | XMS REPORT ---
Author Author BETH HERNÁNDEZ Organization [facility] Address [address] [place] [address] Care Team Providers Care Tank Driver Name Role Phone BETH HERNÁNDEZ Unavailable PROBLEMS Type Condition ICD9-CM Code SAI75-WZ Code Onset Dates Condition Status SNOMED Code Problem Chronic migraine G43.709 Active 63042865 Problem Irritable bowel syndrome with diarrhea K58.0 Active 73651087 Problem PCOS (polycystic ovarian syndrome) E28.2 Active 66790073 Problem Von Willebrand disease D68.0 Active 757067699 Problem Reactive depression F32.9 Active 50549515 Problem Body mass index (BMI) of 40.0-44.9 in adult Z68.41 Active 106259160 Problem Type 2 diabetes mellitus with complication, without long-term current use of insulin E11.8 Active 45371313 Problem Hematuria, unspecified type R31.9 Active 97574480 Problem Stage 1 chronic kidney disease N18.1 Active 873626483 ALLERGIES Substance Reaction Event Type Date Status Metformin HCl anaphylaxis Drug Allergy Jan, Active Codeine Sulfate anaphylaxis Drug Allergy Jan, Active bee sting anaphylaxis Non Drug Allergy Jan, Active latex rash Non Drug Allergy Jan, Active ENCOUNTERS Encounter Location Date Diagnosis [place] [address] [id number] [address]- 7383 Mar, [place] [address] [id number] [address]- 1543 Mar, [place] [address] [place] [id number] [address]- 1883 Feb, Chronic migraine G43.709 ; Hematuria, unspecified type R31.9 ; Reactive depression F32.9 ; Von Willebrand disease D68.0 and BMI 40.0- 44.9, adult Z68.41 [place] [address] [address]- 7597 Feb, Chronic migraine G43.709 [place] [address] [place] [id number] [place] [address] 53911- 0997 Feb, Stage 1 chronic kidney disease N18.1 ; Von Willebrand disease D68.0 ; BMI 40.0-44.9, adult Z68.41 and Other microscopic hematuria R31.29 [place] [address] [place] [address] [place] [address] 21369- 3749 Jan, [place] [address] [place] [address] [place] [address] 87085- 5404 Jan, Acute recurrent maxillary sinusitis J01.01 and BMI 40.0-44.9 , adult Z68.41 [place] [address] [place] [address] 43383- 0480 Jan, [place] [address] [place] [address] [place] [address] 53565- 3313 Dec, [place] [address] [place] [address] 95928- 7051 Dec, Chronic migraine G43.709 [place] [address] [place] [address] 81410- 4118 Dec, Chronic migraine G43.709 ; Type 2 diabetes mellitus without complication, without long-term current use of insulin E11.9 and BMI 40.0-44.9, adult Z68.[address] [id number] [id number] Dec, [facility] [address] [facility] [address] [id number] [id number] Oct, [facility] [address] [facility] [address] [id number] [id number] Oct, Prediabetes R73.09 ; Type 2 diabetes mellitus with complication, without long-term current use of insulin E11.8 ; Body mass index (BMI) of 40.0- 44.9 in adult Z68.41 ; Morbid (severe) obesity due to excess calories E66.01 ; Intractable chronic migraine without aura and without status migrainosus G43.719 and Chronic migraine G43.709 [facility] [address] [place] [id number] [place] [address] 73062- 6458 15 Sep, 2017 [facility] [address] [place] [id number] [place] [address] 71898- 0743 Sep, [facility] [address] 21852- 2977 Sep, [facility] [address] [place] [id number] [place] [address] 25829- 4695 Sep, [facility] [address] [place] [id number] [place] [address] 94111- 0445 Oct, [place] [address] [place] [address] [place] [address] 42897- 5053 Oct, Bee sting allergy Z91.038 [facility] [address] [place] [address] [place] [address] 12657- 7081 Oct, Sinusitis J32.9 [facility] [address] 08868- 3076 Oct, [facility] [address] [place] [id number] [place] [address] 51362- 1962 Sep, [place] [address] [place] [id number] [place] [address] 32232- 1078 Sep, [facility] [address] [place] [id number] [place] [address] 74032- 8613 Sep, PCOS (polycystic ovarian syndrome) E28.2 and Von Willebrand disease D68.0 [place] [address] [place] [address] [place] [address] 54353- 8490 Aug, PCOS (polycystic ovarian syndrome) E28.2 and Von Willebrand disease D68.0 [place] [address] [place] [id number] [place] [address] 41397- 4300 Aug, [place] [address] [place] [id number] [place] [address] 55885- 6672 Aug, Menometrorrhagia N92.1 and PCOS (polycystic ovarian syndrome ) E28.2 [place] [id number] [place] [address] 97530- 2223 May, [address] 18942- 5945 May, [place] [id number] [place] [address] 20194- 0038 Apr, Irritable bowel syndrome with diarrhea K58.0 ; Acute sinusitis, recurrence not specified, unspecified location J01.90 ; Weight gain R63.5 ; Chronic migraine G43.709 and Left hip pain M25.[address] 04776- 9804 Feb, Peroneal tendon tear 844.[address] 47401- 6029 Jan, [address] 05266- 9361 Jan, Fracture, fibula closed, shaft 823.[address] 76269- 4154 Jan, Acute renal insufficiency 593.9 [place] [id number] [place] [address] 79639- 4640 Jan, Von Willebrand disease 286.4 ; PCOS (polycystic ovarian syndrome) 256.4 and Prediabetes 790.[address] 42866- 3821 Dec, Chronic migraine 346.70 ; Irritable bowel syndrome with diarrhea 564.1 ; PCOS (polycystic ovarian syndrome) 256.4 ; Prediabetes 790.29 ; Von Willebrand disease 286.4 and Obesity 278.[address] [id number] [place] [address]- 2101 Oct, Urinary tract infection 599.0 and Diarrhea 787.91 IMMUNIZATIONS No Known Immunizations SOCIAL HISTORY Never Assessed REASON FOR VISIT Sinus Infection-JEFERSON parker PLAN OF CARE Activity Details Follow Up Reg appt Reason: VITAL SIGNS Height 67 in 2018-02-11 Weight 270.2 lbs 2018-02-11 Temperature 97.8 degrees Fahrenheit 2018-02-11 Heart Rate 97 bpm 2018-02-11 Respiratory Rate 2018-02-11 Oximetry on room air:97 % 2018-02-11 BMI 42.31 kg/m2 2018-02-11 Blood pressure systolic 120 mmHg 2018-02-11 Blood pressure diastolic 84 mmHg 2018-02-11 MEDICATIONS Medication Instructions Dosage Frequency Start Date End Date Duration Status EpiPen 2-Yosef 0.3 MG/0.3ML as directed Oct, Active Levaquin 750 MG Orally Once a day 1 tablet 24h Jan, Jan, 07 days Active Wellbutrin XL 300 MG Orally Once a day 1 tablet in the morning 24h 30 days Active Cyclobenzaprine HCl 10 mg Orally Three times a day 1 tablet as needed 8h Oct, Jan, 28 days Active Stimate 1.5 MG/ML Active Invokana 100 mg Orally Once a day 1 tablet 24h Dec, Active Butorphanol Tartrate 10 MG/ML Nasally Once a day 1 spray as needed 24h 28 Active SudoGest 60 mg Orally every 6 hrs 1 tablet as needed 6h Jan, 07 days Active RESULTS No Results PROCEDURES No Known procedures INSTRUCTIONS MEDICATIONS ADMINISTERED No Known Medications MEDICAL (GENERAL) HISTORY Type Description Date Medical History irritable bowel syndrome Medical History PCOS Medical History migraine headaches Medical History von willebrands disease Medical History pre-diabetes Surgical History tonsillectomy and adenoidectomy at age 6 Surgical History ovarian cysts removed at age 15
--- OUTSIDE RECORDS SUMMARY | 2018-05-29 17:05 | XMS REPORT ---
Author Author BETH HERNÁNDEZ Organization [facility] Address [address] [place] [address] Care Team Providers Care Motor Racer Name Role Phone BETH HERNÁNDEZ Unavailable PROBLEMS Type Condition ICD9-CM Code ABX54-[id number] Code Onset Dates Condition Status SNOMED Code Problem Chronic migraine G43.709 Active 62948044 Problem Irritable bowel syndrome with diarrhea K58.0 Active 42038673 Problem PCOS (polycystic ovarian syndrome) E28.2 Active 42704497 Problem Von Willebrand disease D68.0 Active 963664220 Problem Reactive depression F32.9 Active 72439397 Problem Body mass index (BMI) of 40.0-44.9 in adult Z68.41 Active 758584507 Problem Type 2 diabetes mellitus with complication, without long-term current use of insulin E11.8 Active 98871183 Problem Hematuria, unspecified type R31.9 Active 49106643 Problem Stage 1 chronic kidney disease N18.1 Active 103393107 ALLERGIES No Information ENCOUNTERS Encounter Location Date Diagnosis [place] [address] [place] [address] 63686- 0540 Feb, Chronic migraine G43.709 ; Hematuria, unspecified type R31.9 ; Reactive depression F32.9 ; Von Willebrand disease D68.0 and BMI 40.0- 44.9, adult Z68.41 [place] [address] [place] [address] 31071- 4105 Feb, Chronic migraine G43.709 [place] [address] [place] [id number] [place] [address] 63269- 6972 02 Feb, 2018 Stage 1 chronic kidney disease N18.1 ; Von Willebrand disease D68.0 ; BMI 40.0-44.9, adult Z68.41 and Other microscopic hematuria R31.29 [place] [address] [address] 13[address] Jan, [place] [address] [place] [address] 03649- 4693 Jan, Acute recurrent maxillary sinusitis J01.01 and BMI 40.0-44.9 , adult Z68.41 [place] [address] [place] [address] 20959- 7743 Jan, [place] [address] [place] [address] 95503- 7955 Dec, [place] [address] [place] [id number] [place] [address] 43455- 7399 Dec, Chronic migraine G43.709 [address] [place] [address] 45967- 8221 Dec, Chronic migraine G43.709 ; Type 2 diabetes mellitus without complication, without long-term current use of insulin E11.9 and BMI 40.0-44.9, adult Z68.41 [facility] [address] [id number] Dec, [address] [id number] [address] Oct, [address] [id number] [address] Oct, Prediabetes R73.09 ; Type 2 diabetes mellitus with complication, without long-term current use of insulin E11.8 ; Body mass index (BMI) of 40.0- 44.9 in adult Z68.41 ; Morbid (severe) obesity due to excess calories E66.01 ; Intractable chronic migraine without aura and without status migrainosus G43.719 and Chronic migraine G43.709 [place] [address] [place] [address] 63025- 8572 Sep, [place] [address] [place] [address] 39818- 4380 Sep, [place] [address] [id number] [address] 8516 Sep, [facility] [address] [place] [id number] [place] [address] 18228- 5857 Sep, [facility] [address] [place] [id number] [place] [address] 36270- 4496 Oct, [facility] [address] [place] [address] [id number] [place] [address] 71996- 1778 Oct, Bee sting allergy Z91.038 [facility] [address] [place] [id number] [place] [address] 71175- 5956 Oct, Sinusitis J32.9 [facility] [address] [place] [id number] [place] [address] 83760- 6552 Oct, [facility] [address] [place] [address] [id number] [place] [address] 39347- 6960 Sep, [facility] [address] [place] [address] [id number] [place] [address] 48027- 2231 Sep, [facility] [address] [place] [address] [id number] [place] [address] 98998- 8259 Sep, PCOS (polycystic ovarian syndrome) E28.2 and Von Willebrand disease D68.0 [facility] [address] [place] [address] [id number] [place] [address] 02015- 5658 Aug, PCOS (polycystic ovarian syndrome) E28.2 and Von Willebrand disease D68.0 [facility] [address] [place] [id number] [place] [address] 26355- 5759 Aug, [facility] [address] [place] [address] [id number] [place] [address] 52865- 6230 Aug, Menometrorrhagia N92.1 and PCOS (polycystic ovarian syndrome ) E28.2 [facility] [address] [place] [id number] [place] [address] 55172- 4236 May, [facility] [address] [place] [address] [id number] [place] [address] 73296- 6571 May, [address] [place] [address] 61199- 4397 Apr, Irritable bowel syndrome with diarrhea K58.0 ; Acute sinusitis, recurrence not specified, unspecified location J01.90 ; Weight gain R63.5 ; Chronic migraine G43.709 and Left hip pain M25.[address] 12577- 8628 Feb, Peroneal tendon tear 844.[address] 77245- 9500 Jan, [address] 97712- 5005 Jan, Fracture, fibula closed, shaft 823.[address] 56947- 7067 Jan, Acute renal insufficiency 593.9 [place] [id number] [place] [address] 93084- 8796 Jan, Von Willebrand disease 286.4 ; PCOS (polycystic ovarian syndrome) 256.4 and Prediabetes 790.29 [place] [id number] [place] [address] 13929- 1432 Dec, Chronic migraine 346.70 ; Irritable bowel syndrome with diarrhea 564.1 ; PCOS (polycystic ovarian syndrome) 256.4 ; Prediabetes 790.29 ; Von Willebrand disease 286.4 and Obesity 278.00 [place] [id number] [place] [address] 62614- 4876 Oct, Urinary tract infection 599.0 and Diarrhea 787.91 IMMUNIZATIONS No Known Immunizations SOCIAL HISTORY Never Assessed REASON FOR VISIT Resend med PLAN OF CARE VITAL SIGNS MEDICATIONS Medication [...]
--- OUTSIDE RECORDS SUMMARY | 2018-05-29 17:05 | XMS REPORT ---
Author Author BETH HERNÁNDEZ Organization [facility] Address [address] [place] [address] Care Team Providers Care Coil Strapper Name Role Phone BETH HERNÁNDEZ Unavailable PROBLEMS Type Condition ICD9-CM Code RQY90-[id number] Code Onset Dates Condition Status SNOMED Code Problem Chronic migraine G43.709 Active 30591982 Problem Irritable bowel syndrome with diarrhea K58.0 Active 83237476 Problem PCOS (polycystic ovarian syndrome) E28.2 Active 13695763 Problem Von Willebrand disease D68.0 Active 270403281 Problem Reactive depression F32.9 Active 13267222 Problem Body mass index (BMI) of 40.0-44.9 in adult Z68.41 Active 497781881 Problem Type 2 diabetes mellitus with complication, without long-term current use of insulin E11.8 Active 76407188 Problem Hematuria, unspecified type R31.9 Active 85823637 Problem Stage 1 chronic kidney disease N18.1 Active 267384218 ALLERGIES No Information ENCOUNTERS Encounter Location Date Diagnosis [place] [address] [place] [id number] [place] [address] 95162- 7122 Mar, [place] [address] [place] [id number] [place] [address] 75364- 3705 Mar, [place] [address] [place] [id number] [place] [address] 01534- 8192 Feb, Chronic migraine G43.709 ; Hematuria, unspecified type R31.9 ; Reactive depression F32.9 ; Von Willebrand disease D68.0 and BMI 40.0- 44.9, adult Z68.41 [facility] [address] [place] [id number] [place] [address] 83368- 4819 Feb, Chronic migraine G43.709 [place] [address] [place] [id number] [place] [address] 69772- 7364 Feb, Stage 1 chronic kidney disease N18.1 ; Von Willebrand disease D68.0 ; BMI 40.0-44.9, adult Z68.41 and Other microscopic hematuria R31.29 [place] [address] [place] [address] 39637- 9951 Jan, [place] [address] [place] [id number] [place] [address] 26450- 2271 Jan, Acute recurrent maxillary sinusitis J01.01 and BMI 40.0-44.9 , adult Z68.41 [place] [address] [place] [id number] [place] [address] 47180- 7160 Jan, [place] [address] [place] [id number] [place] [address] 75031- 4426 Dec, [place] [address] [place] [id number] [place] [address] 66162- 7759 Dec, Chronic migraine G43.709 [address] [place] [address] 78114- 3699 Dec, Chronic migraine G43.709 ; Type 2 diabetes mellitus without complication, without long-term current use of insulin E11.9 and BMI 40.0-44.9, adult Z68.41 [facility] [address] [id number] [address] Dec, [facility] [address] [facility] [address] [id number] [id number] Oct, [place] [address] [facility] [address] [id number] [id number] Oct, Prediabetes R73.09 ; Type 2 diabetes mellitus with complication, without long-term current use of insulin E11.8 ; Body mass index (BMI) of 40.0- 44.9 in adult Z68.41 ; Morbid (severe) obesity due to excess calories E66.01 ; Intractable chronic migraine without aura and without status migrainosus G43.719 and Chronic migraine G43.[address] [id number] [address]16 15 Sep, 2017 [facility] [address] [place] [id number] [place] [address] 01809- 0430 Sep, [facility] [address] [id number] [address]- 3180 Sep, [facility] [address] [place] [id number] [place] [address] 25703- 4786 Sep, [facility] [address] [place] [id number] [place] [address] 11694- 1994 Oct, [facility] [address] [place] [id number] [place] [address] 53403- 7763 Oct, Bee sting allergy Z91.038 [facility] [address] [place] [id number] [place] [address] 15076- 9208 Oct, Sinusitis J32.9 [facility] [address] [place] [id number] [place] [address] 90654- 4739 Oct, [facility] [address] [place] [id number] [place] [address] 27379- 3324 Sep, [facility] [address] [place] [address] 72055- 9761 Sep, [facility] [address] [place] [address] 47855- 5388 Sep, PCOS (polycystic ovarian syndrome) E28.2 and Von Willebrand disease D68.0 [facility] [address] [address]- 0810 Aug, PCOS (polycystic ovarian syndrome) E28.2 and Von Willebrand disease D68.0 [facility] [address] [address]- 6122 Aug, [facility] [address] [address]- 5732 Aug, Menometrorrhagia N92.1 and PCOS (polycystic ovarian syndrome ) E28.2 [place] [address] [place] [id number] [place] [address] 84730- 6776 May, [place] [address] [place] [id number] [place] [address] 66010- 5982 May, [place] [address] [place] [id number] [place] [address] 13697- 3676 Apr, Irritable bowel syndrome with diarrhea K58.0 ; Acute sinusitis, recurrence not specified, unspecified location J01.90 ; Weight gain R63.5 ; Chronic migraine G43.709 and Left hip pain M25.552 [place] [address] 37773- 0879 Feb, Peroneal tendon tear 844.8 [place] [address] [place] [id number] [place] [address] 85473- 8493 Jan, [place] [address] 67597- 1368 Jan, Fracture, fibula closed, shaft 823.21 [place] [address] [place] [id number] [place] [address] 59208- 5622 Jan, Acute renal insufficiency 593.9 [place] [address] [place] [id number] [place] [address] 08392- 1477 Jan, Von Willebrand disease 286.4 ; PCOS (polycystic ovarian syndrome) 256.4 and Prediabetes 790.29 [place] [address] [place] [address] [place] [address] 36172- 3292 Dec, Chronic migraine 346.70 ; Irritable bowel syndrome with diarrhea 564.1 ; PCOS (polycystic ovarian syndrome) 256.4 ; Prediabetes 790.29 ; Von Willebrand disease 286.4 and Obesity 278.00 [place] [address] [place] [id number] [place] [address] 12539- 2370 Oct, Urinary tract infection 599.0 and Diarrhea 787.91 IMMUNIZATIONS No Known Immunizations SOCIAL HISTORY Never Assessed REASON FOR VISIT PLAN OF CARE VITAL SIGNS MEDICATIONS Medication Instructions Dosage Frequency Start Date End Date Duration Status SudoGest 60 mg Orally every 6 hrs 1 tablet as needed 6h Jan, 07 days Active Levaquin 750 MG Orally Once a day 1 tablet 24h Jan, Jan, 07 days Active RESULTS No Results [...]
--- OUTSIDE RECORDS SUMMARY | 2018-05-29 17:05 | XMS REPORT ---
Author Author BETH HERNÁNDEZ Organization [facility] Address [address] [place] [address] Care Team Providers Care Histology Assistant Name Role Phone BETH HERNÁNDEZ Unavailable PROBLEMS Type Condition ICD9-CM Code RHW75-NE Code Onset Dates Condition Status SNOMED Code Problem Chronic migraine G43.709 Active 71163684 Problem Irritable bowel syndrome with diarrhea K58.0 Active 76048052 Problem PCOS (polycystic ovarian syndrome) E28.2 Active 62082144 Problem Von Willebrand disease D68.0 Active 020282723 Problem Reactive depression F32.9 Active 52184742 Problem Body mass index (BMI) of 40.0-44.9 in adult Z68.41 Active 817119155 Problem Type 2 diabetes mellitus with complication, without long-term current use of insulin E11.8 Active 14882224 Problem Hematuria, unspecified type R31.9 Active 68104056 Problem Stage 1 chronic kidney disease N18.1 Active 377832716 ALLERGIES No Information ENCOUNTERS Encounter Location Date Diagnosis [place] [address] [place] [id number] [place] [address] 57085- 4290 Mar, [place] [address] [place] [id number] [place] [address] 01662- 4114 Mar, [place] [address] [place] [id number] [place] [address] 83388- 4651 Feb, Chronic migraine G43.709 ; Hematuria, unspecified type R31.9 ; Reactive depression F32.9 ; Von Willebrand disease D68.0 and BMI 40.0- 44.9, adult Z68.41 [facility] [address] [place] [id number] [place] [address] 09370- 1896 Feb, Chronic migraine G43.709 [place] [address] [place] [id number] [place] [address] 64833- 9349 Feb, Stage 1 chronic kidney disease N18.1 ; Von Willebrand disease D68.0 ; BMI 40.0-44.9, adult Z68.41 and Other microscopic hematuria R31.29 [place] [address] [place] [address] 06051- 4762 Jan, [place] [address] [place] [id number] [place] [address] 05893- 6467 Jan, Acute recurrent maxillary sinusitis J01.01 and BMI 40.0-44.9 , adult Z68.41 [place] [address] [place] [id number] [place] [address] 01926- 0411 Jan, [place] [address] [place] [id number] [place] [address] 97087- 9917 Dec, [place] [address] [place] [id number] [place] [address] 99005- 9133 Dec, Chronic migraine G43.709 [address] [place] [address] 68301- 9087 Dec, Chronic migraine G43.709 ; Type 2 diabetes mellitus without complication, without long-term current use of insulin E11.9 and BMI 40.0-44.9, adult Z68.41 [facility] [address] [id number] [address] Dec, [facility] [address] [facility] [address] [id number] [id number] Oct, [place] [address] [facility] [address] [id number] [address] Oct, Prediabetes R73.09 ; Type 2 diabetes mellitus with complication, without long-term current use of insulin E11.8 ; Body mass index (BMI) of 40.0- 44.9 in adult Z68.41 ; Morbid (severe) obesity due to excess calories E66.01 ; Intractable chronic migraine without aura and without status migrainosus G43.719 and Chronic migraine G43.[address] [id number] [address] 15 Sep, 2017 [facility] [address] [place] [id number] [place] [address] 27757- 6217 Sep, [facility] [address] [id number] [address]- 8412 Sep, [facility] [address] [place] [id number] [place] [address] 34265- 8924 Sep, [facility] [address] [place] [id number] [place] [address] 01172- 2966 Oct, [facility] [address] [place] [id number] [place] [address] 38562- 3171 Oct, Bee sting allergy Z91.038 [facility] [address] [place] [id number] [place] [address] 35750- 5256 Oct, Sinusitis J32.9 [facility] [address] [place] [id number] [place] [address] 77087- 5535 Oct, [facility] [address] [place] [id number] [place] [address] 51496- 9636 Sep, [facility] [address] [place] [address] 76452- 0871 Sep, [facility] [address] [place] [address] 59983- 0513 Sep, PCOS (polycystic ovarian syndrome) E28.2 and Von Willebrand disease D68.0 [facility] [address] [address]- 2902 Aug, PCOS (polycystic ovarian syndrome) E28.2 and Von Willebrand disease D68.0 [facility] [address] [address]- 0838 Aug, [facility] [address] [address]- 6296 Aug, Menometrorrhagia N92.1 and PCOS (polycystic ovarian syndrome ) E28.2 [place] [address] [place] [id number] [place] [address] 71588- 4973 May, [place] [address] [place] [id number] [place] [address] 82206- 4765 May, [place] [address] [place] [id number] [place] [address] 62805- 8059 Apr, Irritable bowel syndrome with diarrhea K58.0 ; Acute sinusitis, recurrence not specified, unspecified location J01.90 ; Weight gain R63.5 ; Chronic migraine G43.709 and Left hip pain M25.552 [place] [address] 89521- 2623 Feb, Peroneal tendon tear 844.8 [place] [address] [place] [id number] [place] [address] 98421- 7336 Jan, [place] [address] 69811- 8274 Jan, Fracture, fibula closed, shaft 823.21 [place] [address] [place] [id number] [place] [address] 71042- 7224 Jan, Acute renal insufficiency 593.9 [place] [address] [place] [id number] [place] [address] 67062- 9867 Jan, Von Willebrand disease 286.4 ; PCOS (polycystic ovarian syndrome) 256.4 and Prediabetes 790.29 [place] [address] [place] [id number] [place] [address] 03169- 8249 Dec, Chronic migraine 346.70 ; Irritable bowel syndrome with diarrhea 564.1 ; PCOS (polycystic ovarian syndrome) 256.4 ; Prediabetes 790.29 ; Von Willebrand disease 286.4 and Obesity 278.00 [place] [address] [place] [id number] [place] [address] 13176- 0067 Oct, Urinary tract infection 599.0 and Diarrhea 787.91 IMMUNIZATIONS No Known Immunizations SOCIAL HISTORY Never Assessed REASON FOR VISIT Requests return call PLAN OF CARE VITAL SIGNS MEDICATIONS Unknown [...]
--- OUTSIDE RECORDS SUMMARY | 2018-05-29 17:05 | XMS REPORT ---
Author Author BETH HERNÁNDEZ Organization [facility] Address [address] [place] [address] Care Team Providers Care Tourist Adviser Name Role Phone BETH HERNÁNDEZ Unavailable PROBLEMS Type Condition ICD9-CM Code TSC50-BQ Code Onset Dates Condition Status SNOMED Code Problem Chronic migraine G43.709 Active 16401190 Problem Irritable bowel syndrome with diarrhea K58.0 Active 53268629 Problem PCOS (polycystic ovarian syndrome) E28.2 Active 28160203 Problem Von Willebrand disease D68.0 Active 691471481 Problem Reactive depression F32.9 Active 09836153 Problem Body mass index (BMI) of 40.0-44.9 in adult Z68.41 Active 914231326 Problem Type 2 diabetes mellitus with complication, without long-term current use of insulin E11.8 Active 82436465 Problem Hematuria, unspecified type R31.9 Active 03951953 Problem Stage 1 chronic kidney disease N18.1 Active 272611241 ALLERGIES No Information ENCOUNTERS Encounter Location Date Diagnosis [place] [id number] [place] [address] 19971- 5426 10 Mar, 2018 Chronic migraine G43.709 [place] [address] [place] [id number] [place] [address] 88060- 4505 Mar, [place] [address] [place] [id number] [place] [address] 48917- 1394 06 Mar, 2018 Sinusitis J32.9 [place] [address] [place] [id number] [place] [address] 67909- 6841 14 Feb, 2018 Chronic migraine G43.709 ; Hematuria, unspecified type R31.9 ; Reactive depression F32.9 ; Von Willebrand disease D68.0 and BMI 40.0- 44.9, adult Z68.41 [place] [address] [id number] [address] 17[address] Feb, Chronic migraine G43.709 [place] [address] [place] [id number] [place] [address] 81347- 3255 Feb, Stage 1 chronic kidney disease N18.1 ; Von Willebrand disease D68.0 ; BMI 40.0-44.9, adult Z68.41 and Other microscopic hematuria R31.29 [place] [address] [place] [id number] [place] [address] 37283- 2927 Jan, [place] [address] [place] [id number] [place] [address] 65286- 2291 Jan, Acute recurrent maxillary sinusitis J01.01 and BMI 40.0-44.9 , adult Z68.41 [place] [address] [place] [address] 00439- 8523 Jan, [place] [address] [place] [address] 54817- 4826 Dec, [place] [address] [place] [address] 07128- 2298 Dec, Chronic migraine G43.709 [place] [address] [place] [address] 83360- 4834 Dec, Chronic migraine G43.709 ; Type 2 diabetes mellitus without complication, without long-term current use of insulin E11.9 and BMI 40.0-44.9, adult Z68.[address] [id number] [id number] Dec, [facility] [address] [facility] [address] [id number] [id number] Oct, [facility] [address] [facility] [address] [id number] [id number] Oct, Prediabetes R73.09 ; Type 2 diabetes mellitus with complication, without long-term current use of insulin E11.8 ; Body mass index (BMI) of 40.0- 44.9 in adult Z68.41 ; Morbid (severe) obesity due to excess calories E66.01 ; Intractable chronic migraine without aura and without status migrainosus G43.719 and Chronic migraine G43.709 [facility] [address] [place] [id number] [place] [address] 49653- 8035 15 Sep, 2017 [facility] [address] [place] [id number] [place] [address] 04172- 3794 Sep, [facility] [address] 10970- 3258 Sep, [facility] [address] [place] [id number] [place] [address] 22663- 9496 Sep, [facility] [address] 09327- 2600 Oct, [place] [address] 04850- 4137 Oct, Bee sting allergy Z91.038 [facility] [address] [place] [id number] [place] [address] 56859- 0764 Oct, Sinusitis J32.9 [place] [address] 44769- 8450 Oct, [facility] [address] [place] [id number] [place] [address] 25750- 3206 Sep, [place] [address] [place] [id number] [place] [address] 98235- 4682 Sep, [facility] [address] [place] [id number] [place] [address] 87803- 7241 Sep, PCOS (polycystic ovarian syndrome) E28.2 and Von Willebrand disease D68.0 [place] [address] [place] [id number] [place] [address] 59135- 0226 Aug, PCOS (polycystic ovarian syndrome) E28.2 and Von Willebrand disease D68.0 [place] [address] [place] [id number] [place] [address] 62904- 0787 Aug, [place] [address] [place] [id number] [place] [address] 58713- 0264 Aug, Menometrorrhagia N92.1 and PCOS (polycystic ovarian syndrome ) E28.[address] [place] [id number] [place] [address] 02570- 7604 May, [address] 57497- 4860 May, [place] [id number] [place] [address] 44556- 9080 Apr, Irritable bowel syndrome with diarrhea K58.0 ; Acute sinusitis, recurrence not specified, unspecified location J01.90 ; Weight gain R63.5 ; Chronic migraine G43.709 and Left hip pain M25.[address] 40982- 6721 Feb, Peroneal tendon tear 844.[address] 26431- 4421 Jan, [address] 79942- 2716 Jan, Fracture, fibula closed, shaft 823.[address] 16644- 2645 Jan, Acute renal insufficiency 593.[address] 50561- 2764 Jan, Von Willebrand disease 286.4 ; PCOS (polycystic ovarian syndrome) 256.4 and Prediabetes 790.[address] 66823- 8227 Dec, Chronic migraine 346.70 ; Irritable bowel syndrome with diarrhea 564.1 ; PCOS (polycystic ovarian syndrome) 256.4 ; Prediabetes 790.29 ; Von Willebrand disease 286.4 and Obesity 278.00 [place] [id number] [address]- 2255 Oct, Urinary tract infection 599.0 and Diarrhea [...]
--- OUTSIDE RECORDS SUMMARY | 2018-05-29 17:05 | XMS REPORT ---
Author Author BETH HERNÁNDEZ Organization [facility] Address [address] [place] [address] Care Team Providers Care General Assignment Reporter Name Role Phone BETH HERNÁNDEZ Unavailable PROBLEMS Type Condition ICD9-CM Code BXP07-WI Code Onset Dates Condition Status SNOMED Code Problem Chronic migraine G43.709 Active 90182258 Problem Irritable bowel syndrome with diarrhea K58.0 Active 65707837 Problem PCOS (polycystic ovarian syndrome) E28.2 Active 68718157 Problem Von Willebrand disease D68.0 Active 360874602 Problem Reactive depression F32.9 Active 19425375 Problem Body mass index (BMI) of 40.0-44.9 in adult Z68.41 Active 967963919 Problem Type 2 diabetes mellitus with complication, without long-term current use of insulin E11.8 Active 70403832 Problem Hematuria, unspecified type R31.9 Active 34152501 Problem Stage 1 chronic kidney disease N18.1 Active 120103494 ALLERGIES Substance Reaction Event Type Date Status Metformin HCl anaphylaxis Drug Allergy Feb, Active Codeine Sulfate anaphylaxis Drug Allergy Feb, Active bee sting anaphylaxis Non Drug Allergy Feb, Active latex rash Non Drug Allergy Feb, Active ENCOUNTERS Encounter Location Date Diagnosis [place] [address] [place] [address] 61927- 7441 10 Mar, 2018 Chronic migraine G43.709 [facility] [address] [address] 6435 07 Mar, 2018 [place] [address] [place] [id number] [place] [address] 45063- 9851 06 Mar, 2018 Sinusitis J32.9 [facility] [address] [place] [address] 76630- 1157 Feb, Chronic migraine G43.709 ; Hematuria, unspecified type R31.9 ; Reactive depression F32.9 ; Von Willebrand disease D68.0 and BMI 40.0- 44.9, adult Z68.41 [place] [address] [place] [id number] [place] [address] 64824- 2248 Feb, Chronic migraine G43.709 [place] [address] [place] [id number] [place] [address] 73361- 4737 Feb, Stage 1 chronic kidney disease N18.1 ; Von Willebrand disease D68.0 ; BMI 40.0-44.9, adult Z68.41 and Other microscopic hematuria R31.29 [place] [address] [place] [id number] [place] [address] 30433- 1961 Jan, [place] [address] [place] [id number] [place] [address] 70753- 3546 Jan, Acute recurrent maxillary sinusitis J01.01 and BMI 40.0-44.9 , adult Z68.41 [place] [address] [place] [id number] [place] [address] 09920- 5152 Jan, [place] [address] [place] [id number] [place] [address] 79610- 2179 Dec, [place] [address] [place] [id number] [place] [address] 53821- 1012 Dec, Chronic migraine G43.709 [place] [address] [place] [id number] [place] [address] 12669- 7885 Dec, Chronic migraine G43.709 ; Type 2 diabetes mellitus without complication, without long-term current use of insulin E11.9 and BMI 40.0-44.9, adult Z68.41 [facility] [id number] [id number] Dec, [facility] [address] [id number] [id number] Oct, [facility] [address] [id number] [id number] Apr, 2018 Prediabetes R73.09 ; Type 2 diabetes mellitus with complication, without long-term current use of insulin E11.8 ; Body mass index (BMI) of 40.0- 44.9 in adult Z68.41 ; Morbid (severe) obesity due to excess calories E66.01 ; Intractable chronic migraine without aura and without status migrainosus G43.719 and Chronic migraine G43.709 [place] [address] [place] [id number] [place] [address] 13126- 5903 15 Sep, 2017 [place] [address] [place] [id number] [place] [address] 63203- 2214 Sep, [place] [address] 31470- 6112 Sep, [place] [address] 11810- 5515 Sep, [place] [address] 07383- 3556 Oct, [place] [address] [place] [id number] [place] [address] 65987- 3114 Oct, Bee sting allergy Z91.038 [place] [address] 19995- 9897 Oct, Sinusitis J32.9 [place] [address] 65060- 7007 Oct, [place] [address] [place] [id number] [place] [address] 14289- 5407 Sep, [place] [address] [place] [id number] [place] [address] 59550- 0421 Sep, [place] [address] 16948- 1329 Sep, PCOS (polycystic ovarian syndrome) E28.2 and Von Willebrand disease D68.0 [place] [address] 41806- 5514 Aug, PCOS (polycystic ovarian syndrome) E28.2 and Von Willebrand disease D68.0 [place] [address] [place] [id number] [place] [address] 49360- 8149 Aug, [place] [address] [place] [id number] [place] [address] 56957- 8006 Aug, Menometrorrhagia N92.1 and PCOS (polycystic ovarian syndrome ) E28.2 [place] [address] 49579- 9465 May, [place] [address] 72002- 0335 May, [place] [address] 92697- 1617 Apr, Irritable bowel syndrome with diarrhea K58.0 ; Acute sinusitis, recurrence not specified, unspecified location J01.90 ; Weight gain R63.5 ; Chronic migraine G43.709 and Left hip pain M25.552 [place] [address] [place] [id number] [place] [address] 92980- 2171 Feb, Peroneal tendon tear 844.8 [place] [address] [place] [id number] [place] [address] 21752- 5767 Jan, [place] [id number] [place] [address] 65295- 2714 Jan, Fracture, fibula closed, shaft 823.21 [place] [address] [place] [id number] [place] [address] 57744- 8173 Jan, Acute renal insufficiency 593.[address] 03521- 8408 Jan, Von Willebrand disease 286.4 ; PCOS (polycystic ovarian syndrome) 256.4 and Prediabetes 790.29 [place] [id number] [place] [address] 62920- 2803 Dec, Chronic migraine 346.70 ; Irritable bowel syndrome with diarrhea 564.1 ; PCOS (polycystic ovarian syndrome) 256.4 ; Prediabetes 790.29 ; Von Willebrand disease 286.4 and Obesity 278.00 [facility] [address] [facility] [id number] [address]- 3255 Oct, Urinary tract infection 599.0 and Diarrhea 787.91 IMMUNIZATIONS No Known Immunizations SOCIAL HISTORY Never Assessed REASON FOR VISIT Migraine Pt in for f/u [facility] PLAN OF CARE Activity Details Follow Up 3 Months Reason: VITAL SIGNS Height 67 in 2018-03-08 Weight 265.3 lbs 2018-03-08 Temperature 97.8 degrees Fahrenheit 2018-03-08 Heart Rate 82 bpm 2018-03-08 Respiratory Rate 20 2018-03-08 BMI 41.55 kg/m2 2018-03-08 Blood pressure systolic 122 mmHg 2018-03-08 Blood pressure diastolic 82 mmHg 2018-03-08 MEDICATIONS Medication Instructions Dosage Frequency Start Date End Date Duration Status Butorphanol Tartrate 10 MG/ML Nasally Once a day 1 spray as needed 24h 28 Active EpiPen 2-Yosef 0.3 MG/0.3ML as directed Oct, Active Invokana 100 mg Orally Once a day 1 tablet 24h Dec, Active Stimate 1.5 MG/ML Active Wellbutrin XL 300 MG Orally Once a day 1 tablet in the morning 24h 30 days Active RESULTS Name Result Date Reference Range UA LONG DIP (IN HOUSE) 2018-03-08 Lot # [id number] Exp date 10/2018 Clarity Slightly Cloudy Color Yellow Odor None GLU Negative DESI Negative KET Negative SG 1.015 BLO 3+ pH 6.5 Protein Negative URO 0.2 NIT Negative KATH Trace Lot # Exp date PROCEDURES Procedure Date Ordered Result Body Site URINALYSIS, AUTO, W/O SCOPE Mar 08, 2018 INSTRUCTIONS MEDICATIONS ADMINISTERED No Known Medications MEDICAL (GENERAL) HISTORY Type Description Date Medical History irritable bowel syndrome Medical History PCOS Medical History migraine headaches Medical History von willebrands disease Medical History pre-diabetes Surgical History tonsillectomy and adenoidectomy at age 6 Surgical History ovarian cysts removed at age 15
--- OUTSIDE RECORDS SUMMARY | 2018-05-29 17:05 | XMS REPORT ---
Author Author BETH HERNÁNDEZ Organization [facility] Address [address] [place] [address] Care Team Providers Care Flyer Builder Name Role Phone BETH HERNÁNDEZ Unavailable PROBLEMS Type Condition ICD9-CM Code WDH64-LR Code Onset Dates Condition Status SNOMED Code Problem Chronic migraine G43.709 Active 89489656 Problem Irritable bowel syndrome with diarrhea K58.0 Active 05888642 Problem PCOS (polycystic ovarian syndrome) E28.2 Active 02291578 Problem Von Willebrand disease D68.0 Active 569156982 Problem Reactive depression F32.9 Active 18326960 Problem Body mass index (BMI) of 40.0-44.9 in adult Z68.41 Active 499130922 Problem Type 2 diabetes mellitus with complication, without long-term current use of insulin E11.8 Active 55586965 Problem Hematuria, unspecified type R31.9 Active 46402674 Problem Stage 1 chronic kidney disease N18.1 Active 482472209 ALLERGIES Substance Reaction Event Type Date Status Metformin HCl anaphylaxis Drug Allergy Dec, Active Codeine Sulfate anaphylaxis Drug Allergy Dec, Active bee sting anaphylaxis Non Drug Allergy Dec, Active latex rash Non Drug Allergy Dec, Active ENCOUNTERS Encounter Location Date Diagnosis [place] [id number] [place] [address] 06651- 8007 Feb, Chronic migraine G43.709 ; Hematuria, unspecified type R31.9 ; Reactive depression F32.9 ; Von Willebrand disease D68.0 and BMI 40.0- 44.9, adult Z68.41 [facility] [address] [place] [id number] [place] [address] 03607- 2720 Feb, Chronic migraine G43.709 [place] [address] [place] [id number] [address] 8107 Feb, Stage 1 chronic kidney disease N18.1 ; Von Willebrand disease D68.0 ; BMI 40.0-44.9, adult Z68.41 and Other microscopic hematuria R31.29 [place] [address] [place] [address] 82124- 9415 Jan, [place] [address] [place] [id number] [place] [address] 00356- 9481 Jan, Acute recurrent maxillary sinusitis J01.01 and BMI 40.0-44.9 , adult Z68.41 [place] [address] [place] [address] 88595- 7171 Jan, [place] [id number] [place] [address] 30794- 1701 Dec, [place] [id number] [place] [address] 43640- 6833 Dec, Chronic migraine G43.709 [place] [id number] [place] [address] 46539- 3712 Dec, Chronic migraine G43.709 ; Type 2 diabetes mellitus without complication, without long-term current use of insulin E11.9 and BMI 40.0-44.9, adult Z68.41 [facility] [address] [id number] [id number] Dec, [facility] [address] [place] [address] [id number] [id number] Oct, [address] [id number] [id number] Oct, Prediabetes R73.09 ; Type 2 diabetes mellitus with complication, without long-term current use of insulin E11.8 ; Body mass index (BMI) of 40.0- 44.9 in adult Z68.41 ; Morbid (severe) obesity due to excess calories E66.01 ; Intractable chronic migraine without aura and without status migrainosus G43.719 and Chronic migraine G43.709 [address] [place] [address] 11056- 1408 Sep, [facility] [address] [place] [address] 26772- 7050 Sep, [facility] [address] [place] [id number] [place] [address] 23672- 2680 Sep, [facility] [address] [place] [id number] [place] [address] 91760- 3099 Sep, [facility] [address] [place] [id number] [place] [address] 09642- 0941 Oct, [facility] [address] [place] [id number] [place] [address] 83868- 8427 Oct, Bee sting allergy Z91.038 [facility] [address] [place] [id number] [place] [address] 29390- 1449 Oct, Sinusitis J32.9 [facility] [address] [place] [id number] [place] [address] 86886- 1177 Oct, [facility] [address] [place] [id number] [place] [address] 83965- 2985 Sep, [facility] [address] [place] [id number] [place] [address] 24250- 3885 Sep, [facility] [address] [place] [id number] [place] [address] 09475- 2550 Sep, PCOS (polycystic ovarian syndrome) E28.2 and Von Willebrand disease D68.0 [facility] [address] [place] [id number] [place] [address] 67593- 2904 Aug, PCOS (polycystic ovarian syndrome) E28.2 and Von Willebrand disease D68.0 [facility] [address] [place] [id number] [place] [address] 35495- 3030 Aug, [facility] [address] [place] [address] 26497- 7496 Aug, Menometrorrhagia N92.1 and PCOS (polycystic ovarian syndrome ) E28.2 [place] [address] [place] [id number] [place] [address] 87374- 5796 May, [place] [address] [place] [id number] [place] [address] 71396- 0145 May, [place] [address] [place] [id number] [place] [address] 48075- 1811 Apr, Irritable bowel syndrome with diarrhea K58.0 ; Acute sinusitis, recurrence not specified, unspecified location J01.90 ; Weight gain R63.5 ; Chronic migraine G43.709 and Left hip pain M25.552 [place] [id number] [place] [address] 61377- 6885 Feb, Peroneal tendon tear 844.[address] 24757- 8594 Jan, [address] 13485- 9907 Jan, Fracture, fibula closed, shaft 823.21 [place] [id number] [place] [address] 42873- 8718 Jan, Acute renal insufficiency 593.9 [place] [id number] [place] [address] 35067- 2935 Jan, Von Willebrand disease 286.4 ; PCOS (polycystic ovarian syndrome) 256.4 and Prediabetes 790.29 [place] [id number] [place] [address] 78414- 5977 Dec, Chronic migraine 346.70 ; Irritable bowel syndrome with diarrhea 564.1 ; PCOS (polycystic ovarian syndrome) 256.4 ; Prediabetes 790.29 ; Von Willebrand disease 286.4 and Obesity 278.00 [place] [address] [place] [address] 95609- 3568 Oct, Urinary tract infection 599.0 and Diarrhea 787.91 IMMUNIZATIONS No Known Immunizations SOCIAL HISTORY Never Assessed REASON FOR VISIT Previous Dr. Toussaint. PT would like to go over her headaches-[place] PLAN OF CARE Activity Details Follow Up 3 Months Reason: VITAL SIGNS Height 67 in 2018-01-17 Weight 266.4 lbs 2018-01-17 Temperature 98.5 degrees Fahrenheit 2018-01-17 Heart Rate 88 bpm 2018-01-17 Respiratory Rate 18 2018-01-17 BMI 41.72 kg/m2 2018-01-17 Blood pressure systolic 118 mmHg 2018-01-17 Blood pressure diastolic 88 mmHg 2018-01-17 MEDICATIONS Medication Instructions Dosage Frequency Start Date End Date Duration Status EpiPen 2-Yosef 0.3 MG/0.3ML as directed Oct, Active Butorphanol Tartrate 10 MG/ML Nasally Once a day 1 spray as needed 24h 28 Active Wellbutrin XL 300 MG Orally Once a day 1 tablet in the morning 24h 30 days Active Cyclobenzaprine HCl 10 mg Orally Three times a day 1 tablet as needed 8h Oct, Jan, 28 days Active Stimate 1.5 MG/ML Active RESULTS Name Result Date Reference Range A1C (IN HOUSE) 2018-01-17 A1C IN HOUSE 6.8 4.3 - 5.6 % Previous A1c 6.7 Lot [id number] Exp date 09/2019 URINE DRUG SCREEN (IN HOUSE) 2018-01-17 Lot # [id number] Exp date 03/2019 Control + COCAINE Negative AMPH Negative MTD Negative THC Negative OPIATE Negative BENZO Negative PCP Negative BAR Negative OXY Negative MAMP Negative BUP Negative MDMA Negative TCA Negative PROCEDURES Procedure Date Ordered Result Body Site DRUG TEST PRSMV DIR OPT OBS January 17, 2018 GLYCATED HEMOGLOBIN TEST January 17, 2018 INSTRUCTIONS MEDICATIONS ADMINISTERED No Known Medications MEDICAL (GENERAL) HISTORY Type Description Date Medical History irritable bowel syndrome Medical History PCOS Medical History migraine headaches Medical History von willebrands disease Medical History pre-diabetes Surgical History tonsillectomy and adenoidectomy at age 6 Surgical History ovarian cysts removed at age 15
--- OUTSIDE RECORDS SUMMARY | 2018-05-29 17:06 | XMS REPORT ---
Author Author BETH HERNÁNDEZ Organization [facility] Address [address] [place] [address] Care Team Providers Care Facilities Maintenance Technician Name Role Phone BETH HERNÁNDEZ Unavailable PROBLEMS Type Condition ICD9-CM Code ERX78-DN Code Onset Dates Condition Status SNOMED Code Problem Chronic migraine G43.709 Active 46998402 Problem Irritable bowel syndrome with diarrhea K58.0 Active 20990313 Problem PCOS (polycystic ovarian syndrome) E28.2 Active 40796424 Problem Von Willebrand disease D68.0 Active 599373100 Problem Reactive depression F32.9 Active 19290185 Problem Body mass index (BMI) of 40.0-44.9 in adult Z68.41 Active 817097028 Problem Type 2 diabetes mellitus with complication, without long-term current use of insulin E11.8 Active 60291568 Problem Hematuria, unspecified type R31.9 Active 01266284 Problem Stage 1 chronic kidney disease N18.1 Active 383049020 ALLERGIES No Information ENCOUNTERS Encounter Location Date Diagnosis [place] [id number] [place] [address] 09157- 5776 Feb, Chronic migraine G43.709 ; Hematuria, unspecified type R31.9 ; Reactive depression F32.9 ; Von Willebrand disease D68.0 and BMI 40.0- 44.9, adult Z68.41 [place] [address] [place] [address] 59718- 4522 Feb, Chronic migraine G43.709 [place] [address] [id number] [place] [address] 74846- 3989 02 Feb, 2018 Stage 1 chronic kidney disease N18.1 ; Von Willebrand disease D68.0 ; BMI 40.0-44.9, adult Z68.41 and Other microscopic hematuria R31.29 [place] [address], [place] [address] Jan, [place] [address] [place] [address] 71577- 3735 Jan, Acute recurrent maxillary sinusitis J01.01 and BMI 40.0-44.9 , adult Z68.41 [place] [address] [place] [address] 58444- 3645 Jan, [place] [address] [place] [address] 03272- 3546 Dec, [place] [address] [id number] [place] [address] 40590- 0853 Dec, Chronic migraine G43.709 [address] [place] [address] 73509- 5498 Dec, Chronic migraine G43.709 ; Type 2 diabetes mellitus without complication, without long-term current use of insulin E11.9 and BMI 40.0-44.9, adult Z68.41 [facility] [address] [id number] Dec, [address] [id number] [address] Oct, [address] [id number][place] [address] Oct, Prediabetes R73.09 ; Type 2 diabetes mellitus with complication, without long-term current use of insulin E11.8 ; Body mass index (BMI) of 40.0- 44.9 in adult Z68.41 ; Morbid (severe) obesity due to excess calories E66.01 ; Intractable chronic migraine without aura and without status migrainosus G43.719 and Chronic migraine G43.709 [place] [address] [place] [address] 12846- 5727 Sep, [place] [address] [place] [address] 28501- 5814 Sep, [place] [id number] [address] 0485 Sep, [facility] [id number] [place] [address] 72020- 5865 Sep, [facility] [id number] [place] [address] 65022- 2307 Oct, [facility] [id number] [place] [address] 47123- 7285 Oct, Bee sting allergy Z91.038 [facility] [id number] [place] [address] 48371- 6781 Oct, Sinusitis J32.9 [facility] [id number] [place] [address] 16153- 3993 Oct, [facility] [id number] [place] [address] 08994- 6234 Sep, [facility] [id number] [place] [address] 58929- 2116 Sep, [facility] [id number] [place] [address] 87838- 2831 Sep, PCOS (polycystic ovarian syndrome) E28.2 and Von Willebrand disease D68.0 [facility] [id number] [place] [address] 72419- 7297 Aug, PCOS (polycystic ovarian syndrome) E28.2 and Von Willebrand disease D68.0 [facility] [id number] [place] [address] 34145- 6778 Aug, [facility] [id number] [place] [address] 85098- 3272 Aug, Menometrorrhagia N92.1 and PCOS (polycystic ovarian syndrome ) E28.2 [facility] [id number] [place] [address] 03040- 6056 May, [facility] [id number] [place] [address] 51901- 5113 May, [address] [place] [address] 75522- 1690 Apr, Irritable bowel syndrome with diarrhea K58.0 ; Acute sinusitis, recurrence not specified, unspecified location J01.90 ; Weight gain R63.5 ; Chronic migraine G43.709 and Left hip pain M25.[address] 18372- 4252 Feb, Peroneal tendon tear 844.[address] 01526- 1240 Jan, [address] 79587- 6005 Jan, Fracture, fibula closed, shaft 823.[address] 49405- 7086 Jan, Acute renal insufficiency 593.9 [place] [id number] [place] [address] 13322- 9289 Jan, Von Willebrand disease 286.4 ; PCOS (polycystic ovarian syndrome) 256.4 and Prediabetes 790.29 [place] [id number] [place] [address] 88592- 6427 Dec, Chronic migraine 346.70 ; Irritable bowel syndrome with diarrhea 564.1 ; PCOS (polycystic ovarian syndrome) 256.4 ; Prediabetes 790.29 ; Von Willebrand disease 286.4 and Obesity 278.00 [place] [id number] [place] [address] 00181- 1845 Oct, Urinary tract infection 599.0 and Diarrhea 787.91 IMMUNIZATIONS No Known Immunizations SOCIAL HISTORY Never Assessed REASON FOR VISIT Pals PLAN OF CARE VITAL SIGNS MEDICATIONS Medication Instructions Dosage Frequency Start Date End Date Duration Status Invokana 100 mg Orally Once a day 1 tablet 24h Dec, Active RESULTS No Results PROCEDURES No Known procedures INSTRUCTIONS MEDICATIONS ADMINISTERED No Known Medications MEDICAL (GENERAL) HISTORY Type Description Date Medical History irritable bowel syndrome Medical History PCOS Medical History migraine headaches Medical History von willebrands disease Medical History pre-diabetes Surgical History tonsillectomy and adenoidectomy at age 6 Surgical History ovarian cysts removed at age 15
--- OUTSIDE RECORDS SUMMARY | 2018-05-29 17:06 | XMS REPORT ---
Author Author EUGENIO MALDONADO Organization [facility] [place] [facility] Address [address] [place] [address] Care Team Providers Care Group Controller Name Role Phone EUGENIO MALDONADO Unavailable PROBLEMS Type Condition ICD9-CM Code FOB84-UU Code Onset Dates Condition Status SNOMED Code Problem Chronic migraine G43.709 Active 09536850 Problem Irritable bowel syndrome with diarrhea K58.0 Active 38569889 Problem PCOS (polycystic ovarian syndrome) E28.2 Active 23465119 Problem Von Willebrand disease D68.0 Active 106781113 Problem Reactive depression F32.9 Active 79072241 Problem Body mass index (BMI) of 40.0-44.9 in adult Z68.41 Active 744324816 Problem Type 2 diabetes mellitus with complication, without long-term current use of insulin E11.8 Active 18772346 Problem Hematuria, unspecified type R31.9 Active 78078233 Problem Stage 1 chronic kidney disease N18.1 Active 858428049 ALLERGIES No Information ENCOUNTERS Encounter Location Date Diagnosis [place] [id number] [place] [address] 57738- 5714 Feb, Chronic migraine G43.709 ; Hematuria, unspecified type R31.9 ; Reactive depression F32.9 ; Von Willebrand disease D68.0 and BMI 40.0- 44.9, adult Z68.41 [facility] [place] [facility] [address] [place] [id number] [place] [address] 51301- 1930 Feb, Chronic migraine G43.709 [place] [address] [place] [id number] [place] [address] 11211- 3287 02 Feb, 2018 Stage 1 chronic kidney disease N18.1 ; Von Willebrand disease D68.0 ; BMI 40.0-44.9, adult Z68.41 and Other microscopic hematuria R31.29 [place] [address] [place] [address] 20153- 8003 Jan, [place] [address] [id number] [place] [address] 62969- 6455 Jan, Acute recurrent maxillary sinusitis J01.01 and BMI 40.0-44.9 , adult Z68.41 [place] [address] [address] [id number] [place] [address] 79893- 0007 Jan, [place] [address] [place] [id number] [place] [address] 54924- 6583 Dec, [place] [address] [address] [id number] [place] [address] 40664- 2303 Dec, Chronic migraine G43.709 [place] [address] [place] [id number] [place] [address] 40428- 9328 Dec, Chronic migraine G43.709 ; Type 2 diabetes mellitus without complication, without long-term current use of insulin E11.9 and BMI 40.0-44.9, adult Z68.41 [facility] [address] [id number] Dec, [address] [id number] [id number] Oct, [address] [id number] [address] Oct, Prediabetes R73.09 ; Type 2 diabetes mellitus with complication, without long-term current use of insulin E11.8 ; Body mass index (BMI) of 40.0- 44.9 in adult Z68.41 ; Morbid (severe) obesity due to excess calories E66.01 ; Intractable chronic migraine without aura and without status migrainosus G43.719 and Chronic migraine G43.709 [place] [address] [place] [address] 70632- 0212 Sep, [place] [address] [place] [id number] [place] [address] 83433- 9074 Sep, [facility] [place] [facility] [address], [place] [address]- 2649 Sep, [facility] [place] [facility] [address] [id number] [place] [address] 79166- 3532 Sep, [facility] [place] [facility] [address], [place] [address]- 7305 Oct, [facility] [place] [facility] [address] [place] [address] [id number] [place] [address] 76942- 0296 Oct, Bee sting allergy Z91.038 [facility] [place] [facility] [address] [address] [id number] [place] [address] 65371- 8328 Oct, Sinusitis J32.9 [facility] [place] [facility] [address] [id number] [place] [address] 63550- 2668 Oct, [facility] [place] [facility] [address] [id number] [place] [address] 31813- 8053 Sep, [facility] [place] [facility] [address] [place] [address] [id number], [place] [address]- 6199 Sep, [facility] [place] [facility] [address] [address] [id number] [place] [address] 75435- 4331 Sep, PCOS (polycystic ovarian syndrome) E28.2 and Von Willebrand disease D68.0 [facility] [place] [facility] [address] [place] [address] [id number] [address]- 3108 Aug, PCOS (polycystic ovarian syndrome) E28.2 and Von Willebrand disease D68.0 [facility] [place] [facility] [address], [place] [address]- 1717 Aug, [facility] [place] [facility] [address] [address] [id number] [place] [address] 95792- 0066 Aug, Menometrorrhagia N92.1 and PCOS (polycystic ovarian syndrome ) E28.2 [facility] [place] [facility] [address], [place] [address]- 9608 May, [facility] [place] [id number] [place] [address] 04747- 3057 May, [place] [id number] [place] [address] 73603- 7979 Apr, Irritable bowel syndrome with diarrhea K58.0 ; Acute sinusitis, recurrence not specified, unspecified location J01.90 ; Weight gain R63.5 ; Chronic migraine G43.709 and Left hip pain M25.[address] 31271- 5410 Feb, Peroneal tendon tear 844.[address] 75250- 1395 Jan, [address] 03284- 7195 Jan, Fracture, fibula closed, shaft 823.[address] 81193- 8271 Jan, Acute renal insufficiency 593.9 [place] [id number] [place] [address] 23880- 4018 Jan, Von Willebrand disease 286.4 ; PCOS (polycystic ovarian syndrome) 256.4 and Prediabetes 790.29 [place] [id number] [place] [address] 23970- 4475 Dec, Chronic migraine 346.70 ; Irritable bowel syndrome with diarrhea 564.1 ; PCOS (polycystic ovarian syndrome) 256.4 ; Prediabetes 790.29 ; Von Willebrand disease 286.4 and Obesity 278.00 [place] [id number] [place] [address] 84875- 0189 Oct, Urinary tract infection 599.0 and Diarrhea 787.91 IMMUNIZATIONS No Known Immunizations SOCIAL HISTORY Never Assessed REASON FOR VISIT PLAN OF CARE VITAL SIGNS MEDICATIONS No Known Medications RESULTS No Results PROCEDURES No Known procedures INSTRUCTIONS MEDICATIONS ADMINISTERED No Known Medications MEDICAL (GENERAL) HISTORY Type Description Date Medical History irritable bowel syndrome Medical History PCOS Medical History migraine headaches Medical History von willebrands disease Medical History pre-diabetes Surgical History tonsillectomy and adenoidectomy at age 6 Surgical History ovarian cysts removed at age 15
--- OUTSIDE RECORDS SUMMARY | 2018-05-29 17:06 | XMS REPORT ---
Author Author SKYLER VILLEGAS [facility] eClinical[employer] Address Unknown Phone Unavailable Care Team Providers Care Stroboroma Operator Name Role Phone SKYLER VILLEGAS Unavailable Allergies No Known Allergies Problems Problem Type Condition Code Onset Dates Condition Status Problem Irritable bowel syndrome with diarrhea K58.0 Active Problem PCOS (polycystic ovarian syndrome) E28.2 Active Problem Chronic migraine G43.709 Active Problem Prediabetes R73.09 Active Medications Medication Code System Code Instructions Start Date End Date Status Dosage Augmentin [facility] [address]-74 875-125 MG Orally every 12 hrs May 27, 2015 Jun 06, 2015 1 tablet Results No Known Results Summary Purpose eClinicalWorks Submission
--- OUTSIDE RECORDS SUMMARY | 2018-05-29 17:06 | XMS REPORT ---
Author Author VANESSA POOLE [facility] Address [address] [place] [address] Care Team Providers Care Satellite Television Installer Name Role Phone VANESSA POOLE Unavailable PROBLEMS Type Condition ICD9-CM Code RUO84-XY Code Onset Dates Condition Status SNOMED Code Problem PCOS (polycystic ovarian syndrome) E28.2 Active 63525619 Problem Irritable bowel syndrome with diarrhea K58.0 Active 62615438 Problem Prediabetes R73.09 Active 7128668 Problem Chronic migraine G43.709 Active 93232888 Problem Type 2 diabetes mellitus without complication, without long-term current use of insulin E11.9 Active 878294651 Problem Type 2 diabetes mellitus with complication, without long-term current use of insulin E11.8 Active 69038322 Problem Morbid (severe) obesity due to excess calories E66.01 Active 449876122 Problem Von Willebrand disease D68.0 Active 718913264 Problem Body mass index (BMI) of 40.0-44.9 in adult Z68.41 Active 432960096 Problem Intractable chronic migraine without aura and without status migrainosus G43.719 Active 397671972 ALLERGIES No Information ENCOUNTERS Encounter Location Date Diagnosis [facility] [address] [place] [id number], [place] [address]- [address] Dec, [facility] [address] [place] [id number], [place] [address]- 0183 Dec, Chronic migraine G43.709 [facility] [address] [place] [address] [id number], [place] [address]- 0601 Dec, Chronic migraine G43.709 ; Type 2 diabetes mellitus without complication, without long-term current use of insulin E11.9 and BMI 40.0-44.9, adult Z68.41 [facility] [address] [id number] [id number] Dec, [facility] [address] [id number] [id number] Oct, [facility] [address] [id number] [id number] Oct, Prediabetes R73.09 ; Type 2 diabetes mellitus with complication, without long-term current use of insulin E11.8 ; Body mass index (BMI) of 40.0- 44.9 in adult Z68.41 ; Morbid (severe) obesity due to excess calories E66.01 ; Intractable chronic migraine without aura and without status migrainosus G43.719 and Chronic migraine G43.709 [facility] [address] [place] [id number] [place] [address] 69698- 9962 Sep, [facility] [address] [id number] [place] [address] 71102- 9115 Sep, [facility] [address] 38130- 3033 Sep, [facility] [id number] [place] [address] 11567- 1023 Sep, [facility] [id number] [place] [address] 21231- 2553 Oct, [facility] [address] [id number] [place] [address] 17839- 2336 Oct, Bee sting allergy Z91.038 [facility] [address] 25884- 5521 Oct, Sinusitis J32.9 [facility] [id number] [place] [address] 32133- 8154 Oct, [facility] [address] 29867- 8555 Sep, [facility] [address] 76616- 9247 Sep, [facility] [address] [place] [place] [address]- 5093 Sep, PCOS (polycystic ovarian syndrome) E28.2 and Von Willebrand disease D68.0 [place] [id number] [place] [address] 21759- 7026 Aug, PCOS (polycystic ovarian syndrome) E28.2 and Von Willebrand disease D68.0 [place] [address] [place] [address] [id number] [place] [address] 71302- 2285 Aug, [place] [address] 87952- 8668 Aug, Menometrorrhagia N92.1 and PCOS (polycystic ovarian syndrome ) E28.2 [place] [address] [id number] [place] [address] 89361- 0668 May, [place] [address] [place] [id number] [place] [address] 96804- 6874 May, [place] [address] [place] [id number] [place] [address] 78931- 1029 Apr, Irritable bowel syndrome with diarrhea K58.0 ; Acute sinusitis, recurrence not specified, unspecified location J01.90 ; Weight gain R63.5 ; Chronic migraine G43.709 and Left hip pain M25.552 [place] [address] [id number] [place] [address] 34937- 0940 Feb, Peroneal tendon tear 844.8 [place] [address] [id number] [place] [address] 33750- 0580 Jan, [place] [address] [place] [id number] [place] [address] 14543- 9802 Jan, Fracture, fibula closed, shaft 823.21 [place] [address] [place] [id number] [place] [address] 56238- 0439 Jan, Acute renal insufficiency 593.9 [place] [address] 34076- 2140 Jan, Von Willebrand disease 286.4 ; PCOS (polycystic ovarian syndrome) 256.4 and Prediabetes 790.29 [facility] [address] [place] [address] [id number] [address]- 5200 Dec, Chronic migraine 346.70 ; Irritable bowel syndrome with diarrhea 564.1 ; PCOS (polycystic ovarian syndrome) 256.4 ; Prediabetes 790.29 ; Von Willebrand disease 286.4 and Obesity 278.[address] [id number] [address]- 1157 Oct, Urinary tract infection 599.0 and Diarrhea [...]
--- OUTSIDE RECORDS SUMMARY | 2018-05-29 17:06 | XMS REPORT ---
Author Author ERICA EUGENIO Organization [facility] Address [address] [place] [address] Care Team Providers Care Gantry Rigger Name Role Phone EUGENIO MALDONADO Unavailable PROBLEMS Type Condition ICD9-CM Code ASA54-TC Code Onset Dates Condition Status SNOMED Code Problem PCOS (polycystic ovarian syndrome) E28.2 Active 92511944 Problem Irritable bowel syndrome with diarrhea K58.0 Active 55188776 Problem Prediabetes R73.09 Active 3503632 Problem Chronic migraine G43.709 Active 98878732 Problem Type 2 diabetes mellitus without complication, without long-term current use of insulin E11.9 Active 464717339 Problem Type 2 diabetes mellitus with complication, without long-term current use of insulin E11.8 Active 38834589 Problem Morbid (severe) obesity due to excess calories E66.01 Active 063796154 Problem Von Willebrand disease D68.0 Active 746575355 Problem Body mass index (BMI) of 40.0-44.9 in adult Z68.41 Active 882634502 Problem Intractable chronic migraine without aura and without status migrainosus G43.719 Active 587008877 ALLERGIES Substance Reaction Event Type Date Status Metformin HCl anaphylaxis Drug Allergy Oct, Active Codeine Sulfate anaphylaxis Drug Allergy Oct, Active bee sting anaphylaxis Non Drug Allergy Oct, Active latex rash Non Drug Allergy Oct, Active ENCOUNTERS Encounter Location Date Diagnosis [facility] [address] [facility] [id number] [address] Jan, [facility] [address] [place] [address] Jan, Acute recurrent maxillary sinusitis J01.01 and BMI 40.0-44.9 , adult Z68.41 [facility] [address] [place] [address]- 38[address] Jan, [facility] [address] [id number] [address] Dec, [facility] [address] [address] Dec, Chronic migraine G43.709 [facility] [id number] [address] Dec, Chronic migraine G43.709 ; Type 2 diabetes mellitus without complication, without long-term current use of insulin E11.9 and BMI 40.0-44.9, adult Z68.41 [facility] [address] [id number] Dec, [facility] [address] [facility] [address] [id number] [id number] Oct, [facility] [address] [place] [address] [id number] [id number] Oct, Prediabetes R73.09 ; Type 2 diabetes mellitus with complication, without long-term current use of insulin E11.8 ; Body mass index (BMI) of 40.0- 44.9 in adult Z68.41 ; Morbid (severe) obesity due to excess calories E66.01 ; Intractable chronic migraine without aura and without status migrainosus G43.719 and Chronic migraine G43.709 [facility] [id number] [address] Sep, [facility] [address] [place] [address] 83176- 2969 Sep, [facility] [address] [address] Sep, [facility] [address] [place] [address]10- 0266 Sep, [facility] [address] [address] Oct, [facility] [id number] [place] [address] 62[address]- 8813 Oct, Bee sting allergy Z91.038 [place] [id number] [place] [address] 26500- 1384 Oct, Sinusitis J32.9 [place] [id number] [place] [address] 79733- 6931 Oct, [place] [id number] [place] [address] 75466- 6989 Sep, [place] [id number] [place] [address] 95233- 3853 Sep, [place] [id number] [place] [address] 17296- 4117 Sep, PCOS (polycystic ovarian syndrome) E28.2 and Von Willebrand disease D68.0 [place] [address] [address] Aug, PCOS (polycystic ovarian syndrome) E28.2 and Von Willebrand disease D68.0 [place] [id number] [place] [address] 10665- 6295 Aug, [place] [id number] [place] [address] 09841- 3520 Aug, Menometrorrhagia N92.1 and PCOS (polycystic ovarian syndrome ) E28.2 [place] [id number] [place] [address]66- 2689 May, [place] [id number] [place] [address] 91009- 5381 May, [place] [id number] [place] [address] Apr, Irritable bowel syndrome with diarrhea K58.0 ; Acute sinusitis, recurrence not specified, unspecified location J01.90 ; Weight gain R63.5 ; Chronic migraine G43.709 and Left hip pain M25.552 [place] [address] [place] [address] 01746- 5670 Feb, Peroneal tendon tear 844.8 [place] [id number] [place] [address] 19615- 1506 Jan, [place] [id number] [place] [address] 87949- 4989 Jan, Fracture, fibula closed, shaft 823.21 [place] [address] [address] Jan, Acute renal insufficiency 593.[address] [address] Jan, Von Willebrand disease 286.4 ; PCOS (polycystic ovarian syndrome) 256.4 and Prediabetes 790.[address] [address] Dec, Chronic migraine 346.70 ; Irritable bowel syndrome with diarrhea 564.1 ; PCOS (polycystic ovarian syndrome) 256.4 ; Prediabetes 790.29 ; Von Willebrand disease 286.4 and Obesity 278.[id number] [place] [address] 11434- 4577 Oct, Urinary tract infection 599.0 and Diarrhea 787.91 IMMUNIZATIONS No Known Immunizations SOCIAL HISTORY Never Assessed REASON FOR VISIT Establish Care, has been diagnosed with pre-diabetes, wants to talk about migraines--MORENA springer PLAN OF CARE Activity Details Follow Up 4 Weeks Reason: VITAL SIGNS Height 67 in 2017-11-01 Weight 265.1 lbs 2017-11-01 Temperature 97.1 degrees Fahrenheit 2017-11-01 Heart Rate 90 bpm 2017-11-01 Respiratory Rate 16 2017-11-01 BMI 41.52 kg/m2 2017-11-01 Blood pressure systolic 112 mmHg 2017-11-01 Blood pressure diastolic 74 mmHg 2017-11-01 MEDICATIONS Medication Instructions Dosage Frequency Start Date End Date Duration Status Stimate 1.5 MG/ML Active Nasonex 50 MCG/ACT Nasally Once a day 2 sprays in each nostril 24h Oct, 30 day(s) Not-Taking Prometrium 100 mg Orally Once a day for 1st 10 days of month 1 capsules at bedtime Active Cyclobenzaprine HCl 10 mg Orally Three times a day 1 tablet as needed 8h Oct, Jan, 28 days Active Lomotil 2.5-0.025 MG Orally 3 times a day 1 tab Active Butorphanol Tartrate 10 MG/ML Nasally every 8 hrs 1 spray as needed 8h Oct, November, 28 days Active Zovia 1/35E (28) 1-35 MG-MCG Orally Once a day 1 tablet 24h Aug, 28 day(s) Not-Taking Wellbutrin XL 300 MG Orally Once a day 1 tablet in the morning 24h 30 days Active EpiPen 2-Yosef 0.3 MG/0.3ML as directed Oct, Active Phenergan 25 MG Orally every 12 hrs 1 tablet as needed 12h 4 Dec, 2017 28 days Active Pseudoephedrine HCl 60 mg Orally every 6 hrs 1 tablet as needed 6h Oct, Not-Taking RESULTS No Results PROCEDURES Procedure Date Ordered Result Body Site GLYCATED HEMOGLOBIN TEST November 01, 2017 COMPLETE CBC W/AUTO DIFF WBC November 01, 2017 VENIPUNCT, ROUTINE* November 01, 2017 LIPID PANEL November 01, 2017 ASSAY THYROID STIM HORMONE November 01, 2017 COMPREHEN METABOLIC PANEL November 01, 2017 INSTRUCTIONS MEDICATIONS ADMINISTERED No Known Medications MEDICAL (GENERAL) HISTORY Type Description Date Medical History irritable bowel syndrome Medical History PCOS Medical History migraine headaches Medical History von willebrands disease Medical History pre-diabetes Surgical History tonsillectomy and adenoidectomy at age 6 Surgical History ovarian cysts removed at age 15
--- OUTSIDE RECORDS SUMMARY | 2018-05-29 17:06 | XMS REPORT ---
Author Author MACK REDMAN [facility] Address Unknown Phone Unavailable Care Team Providers Care Backroom Associate Name Role Phone MACK REDMAN Unavailable Unavailable PROBLEMS Type Condition ICD9-CM Code KNR84-ZN Code Onset Dates Condition Status SNOMED Code Problem PCOS (polycystic ovarian syndrome) E28.2 Active 63212360 Problem Irritable bowel syndrome with diarrhea K58.0 Active 97047964 Problem Prediabetes R73.09 Active 2607766 Problem Chronic migraine G43.709 Active 87930437 Problem Type 2 diabetes mellitus without complication, without long-term current use of insulin E11.9 Active 081933842 Problem Type 2 diabetes mellitus with complication, without long-term current use of insulin E11.8 Active 94128934 Problem Morbid (severe) obesity due to excess calories E66.01 Active 782184914 Problem Von Willebrand disease D68.0 Active 013733193 Problem Body mass index (BMI) of 40.0-44.9 in adult Z68.41 Active 598301807 Problem Intractable chronic migraine without aura and without status migrainosus G43.719 Active 490822101 ALLERGIES No Information ENCOUNTERS Encounter Location Date Diagnosis [place] [id number] [place] [address]35- [address] Jan, [place] [id number] [place] [address] 39757- 3276 Jan, Acute recurrent maxillary sinusitis J01.01 and BMI 40.0-44.9 , adult Z68.41 [facility] [id number] [place] [address] 41168- 9228 Jan, [place] [id number] [place] [address] 85761- 7218 Dec, [place] [id number] [place] [address] 46073- 2804 Dec, Chronic migraine G43.709 [facility] [address] [id number] [address] Dec, Chronic migraine G43.709 ; Type 2 diabetes mellitus without complication, without long-term current use of insulin E11.9 and BMI 40.0-44.9, adult Z68.41 [facility] [address] [facility] [id number] [id number] Dec, [facility] [address] [facility] [address] [id number] [place] [id number] Oct, [facility] [address] [facility] [address] [id number] [place] [id number] Oct, Prediabetes R73.09 ; Type 2 diabetes mellitus with complication, without long-term current use of insulin E11.8 ; Body mass index (BMI) of 40.0- 44.9 in adult Z68.41 ; Morbid (severe) obesity due to excess calories E66.01 ; Intractable chronic migraine without aura and without status migrainosus G43.719 and Chronic migraine G43.709 [place] [address] [place] [address] 37188- 3765 Sep, [facility] [id number] [place] [address] 41308- 5331 Sep, [facility] [id number] [place] [address] 85676- 8106 Sep, [facility] [id number] [place] [address] 10792- 4435 Sep, [facility] [id number] [place] [address] 67920- 1376 Oct, [facility] [id number] [place] [address] 29215- 5502 Oct, Bee sting allergy Z91.038 [facility] [address] [place] [address] 65172- 9521 Oct, Sinusitis J32.9 [place] [address] [place] [address] [address] 3[address] Oct, [facility] [id number] [place] [address] 35204- 8483 Sep, [facility] [id number] [place] [address] 53392- 3043 Sep, [facility] [id number] [place] [address] 57222- 9942 Sep, PCOS (polycystic ovarian syndrome) E28.2 and Von Willebrand disease D68.0 [facility] [id number] [place] [address] 06572- 7123 Aug, PCOS (polycystic ovarian syndrome) E28.2 and Von Willebrand disease D68.0 [facility] [id number] [place] [address] 29431- 0604 Aug, [facility] [address] [address]- [address] Aug, Menometrorrhagia N92.1 and PCOS (polycystic ovarian syndrome ) E28.2 [facility] [id number] [place] [address] 87766- 8220 May, [facility] [id number] [place] [address] 41917- 8644 May, [facility] [id number] [place] [address] 94696- 6403 Apr, Irritable bowel syndrome with diarrhea K58.0 ; Acute sinusitis, recurrence not specified, unspecified location J01.90 ; Weight gain R63.5 ; Chronic migraine G43.709 and Left hip pain M25.552 [facility] [id number] [place] [address] 39161- 1910 Feb, Peroneal tendon tear 844.8 [facility] [id number] [place] [address] 66054- 0936 Jan, [facility] [address] [place] [address] Jan, Fracture, fibula closed, shaft 823.21 [place] [id number] [place] [address] 14500- 7997 Jan, Acute renal insufficiency 593.[address] [place] [address] 73173- 4150 Jan, Von Willebrand disease 286.4 ; PCOS (polycystic ovarian syndrome) 256.4 and Prediabetes 790.[address] [place] [address] 04877- 7160 Dec, Chronic migraine 346.70 ; Irritable bowel syndrome with diarrhea 564.1 ; PCOS (polycystic ovarian syndrome) 256.4 ; Prediabetes 790.29 ; Von Willebrand disease 286.4 and Obesity 278.[address] [place] [id number] [place] [address] 24708- 3956 Oct, Urinary tract infection 599.0 and Diarrhea 787.91 IMMUNIZATIONS No Known Immunizations SOCIAL HISTORY Never Assessed REASON FOR VISIT [facility] Contact PLAN OF CARE Activity Details Follow Up Pt. will use services in a few weeks. Reason:anxiety and frustration VITAL SIGNS MEDICATIONS Unknown Medications RESULTS No [...]
--- OUTSIDE RECORDS SUMMARY | 2018-05-29 17:07 | XMS REPORT | Continuity of Care Document ---
Author Author [facility] Address Unknown Phone Unavailable Allergies Active Description Code Type Severity Reaction Onset Reported/Identified Relationship to Patient Clinical Status Yes bee sting Drug Allergy N/A N/A 11/15/2014 Yes codeine Drug Allergy N/A N/A 11/15/2014 Yes latex Drug Allergy N/A N/A 11/15/2014 Yes BEE STING BEE STING Unknown N/A 01/29/2015 Yes codeine [id number] Drug Allergy Unknown N/A 01/29/2015 Yes latex [id number] Drug Allergy Unknown N/A 01/29/2015 Medications There [...] MD, Ot D68.0 VON WILLEBRAND'S DISEASE 11/22/2015 ALEXANDRO SETH N Ot D68.0 VON WILLEBRAND'S DISEASE 01/08/2016 ALEXANDRO SETH N Ot D68.0 VON WILLEBRAND'S DISEASE 01/22/2016 ALEXANDRO SETH N Ot D68.0 VON WILLEBRAND'S DISEASE 02/01/2018 ALEXANDRO SETH N Ot D68.0 VON WILLEBRAND'S DISEASE 02/01/2018 JARED VASQUEZ MD Ot G43.909 MIGRAINE, UNSP, NOT INTRACTABLE, WITHOUT 02/01/2018 JARED VASQUEZ MD Ot J01.90 ACUTE SINUSITIS, UNSPECIFIED 02/01/2018 JARED VASQUEZ MD Ot R05 COUGH 02/01/2018 JRAED VASQUEZ MD Ot Z88.5 ALLERGY STATUS TO NARCOTIC AGENT STATUS 02/01/2018 JARED VASQUEZ MD Ot Z90.89 ACQUIRED ABSENCE OF OTHER ORGANS 02/01/2018 JARED VASQUEZ MD Ot Z91.030 BEE ALLERGY STATUS 02/01/2018 JARED VASQUEZ MD Ot Z91.040 LATEX ALLERGY STATUS 02/03/2018 JARED VASQUEZ MD Ot G43.909 MIGRAINE, UNSP, NOT INTRACTABLE, WITHOUT 02/03/2018 JARED VASQUEZ MD Ot J01.90 ACUTE SINUSITIS, UNSPECIFIED 02/03/2018 JARED VASQUEZ MD Ot R05 COUGH 02/03/2018 JARED VASQUEZ MD Ot Z88.5 ALLERGY STATUS TO NARCOTIC AGENT STATUS 02/03/2018 JARED VASQUEZ MD Ot Z90.89 ACQUIRED ABSENCE OF OTHER ORGANS 02/03/2018 JARED VASQUEZ MD Ot Z91.030 BEE ALLERGY STATUS 02/03/2018 JARED VASQUEZ MD Ot Z91.040 LATEX ALLERGY STATUS 02/07/2018 JRAED VASQUEZ MD Ot G43.909 MIGRAINE, UNSP, NOT INTRACTABLE, WITHOUT 02/07/2018 JARED VASQUEZ MD Ot J01.90 ACUTE SINUSITIS, UNSPECIFIED 02/07/2018 JARED VASQUEZ MD Ot R05 COUGH 02/07/2018 JARED VASQUEZ MD Ot Z88.5 ALLERGY STATUS TO NARCOTIC AGENT STATUS 02/07/2018 JARED VASQUEZ MD Ot Z90.89 ACQUIRED ABSENCE OF OTHER ORGANS 02/07/2018 JARED VASQUEZ MD Ot Z91.030 BEE ALLERGY STATUS 02/07/2018 JARED VASQUEZ MD Ot Z91.040 LATEX ALLERGY STATUS Procedures There is no data. Results Test Result Range TSH - 11/01/17 12:39 TSH 1.35 mIU/L NRG CULTURE, URINE - 02/24/18 16:36 CULTURE, URINE, ROUTINE SEE NOTE NRG Encounters ACCT No. Visit Date/Time Discharge Status Pt. Type Provider Facility Loc./Unit Complaint [id number] 11/15/2014 09:52:00 11/15/2014 23:59:59 CLS Outpatient LAMBERTO OBRIEN APRN [id number] 02/01/2018 20:32:00 02/01/2018 21:33:00 DIS Emergency JARED VASQUEZ MD [facility] ER POSS PNUEMONIA [id number] 11/25/2015 15:06:00 11/25/2015 23:59:59 CLS Preadmit ROLOALEXANDRO [facility] ONC [id number] 11/01/2015 13:47:00 11/22/2015 15:06:00 DIS Outpatient LIAN DYE MD [facility] ONC [id number] 09/29/2015 18:38:00 09/29/2015 21:24:00 DIS Emergency PACO DO STEVE K [facility] ER ABD PAIN [id number] 01/29/2015 15:20:00 01/29/2015 16:40:00 DIS Emergency STEPHEN WALKER [facility] ER R ANKLE INJ/PAIN [id number] 05/29/2018 16:28:00 ACT Emergency DANY MOY MD [facility] ER VOMITTING,FEVER [id number] 02/24/2018 13:20:00 02/24/2018 23:59:59 CLS Outpatient BETTY PAINTER, [facility] [id number] 02/24/2018 13:20:00 Document Registration [id number] 11/01/2017 10:00:00 Document Registration
[2018-05-29 17:49] LABS: BILIRUBIN,URINE NEGATIVE (NEGATIVE); CLARITY,URINE SLIGHTLY CLOUDY; COLOR,URINE YELLOW; GLUCOSE, URINE (UA) NEGATIVE (NEGATIVE); KETONES,URINE NEGATIVE (NEGATIVE); LEUKOCYTE ESTERASE ,URINE 3+ (NEGATIVE); NITRITE,URINE NEGATIVE (NEGATIVE); PH,URINE 6 (5-9); PROTEIN,URINE NEGATIVE (NEGATIVE); UROBILINOGEN,URINE NORMAL (NORMAL)
[2018-05-29 18:11] LABS: BACTERIA,URINE TRACE /HPF; RBC,URINE >100 /HPF; WBC,URINE 25-50 /HPF
[2018-05-29] MEDS ORDERED: NS IV 1000 ML 1,000 ML IV ONE (18:38)
[2018-05-29] MEDS ORDERED: fentaNYL INJECTION 100 MCG/2 ML AMP IVP STA (18:38)
[2018-05-29] MEDS ORDERED: KETOROLAC 30 MG/ML VIAL IVP STA (18:38)
[2018-05-29] MEDS ORDERED: PROMETHAZINE INJ 25 MG/ML (PHENERGAN) AMP IVP STA (18:38)
--- NOTE | 2018-05-29 18:41 | ED GI ---
General Chief Complaint: Abdominal/GI Problems Stated Complaint: VOMITTING,FEVER Nursing Triage Note: states that she has had n/v/d/f since Wednesday afternoon. states fever has high as 101. took naproxen today. C/O rt lower abd pain Sepsis Screen: No Definite Risk Source of Information: Patient Exam Limitations: No Limitations History of Present Illness Date Seen by Provider: May 29, 2018 Time Seen by Provider: 18:31 Initial Comments Here with report of nausea, vomiting and diarrhea as well as some fever since Wednesday afternoon. She has taken her son. States that she is adequately 16 episodes of diarrhea today. She does have history of irritable bowel syndrome and frequently has diarrhea but not this frequent. Also complains of headache. Has history of migraines that are frequently exacerbated in appears to be today. She did take some Phenergan earlier and that helped a little. Timing/Duration: 2-3 Days Severity/Quality: Moderate Location: Generalized Abdomen Radiation: No Radiation Activities at Onset: None Modifying Factors: Worsens With Eating; Improves With Resting Associated Symptoms: No Back Pain, No Chest Pain; Fever/Chills, Fatigue, Headache, Nausea/Vomiting; No Shortness of Air, No Weakness Allergies and Home Medications Allergies Coded Allergies: codeine (Unverified Allergy, Unknown, 05/29/18) latex (Unverified Allergy, Unknown, 01/29/15) Uncoded Allergies: BEE STING (Allergy, Unknown, 01/29/15) Home Medications Amoxicillin/Potassium Clav 1 Each Tablet, 1 EACH PO BID Prescribed by: JARED VASQUEZ on 02/01/182123 Cephalexin 500 Mg Tablet, 500 MG PO BID Prescribed by: JARED VASQUEZ on 05/29/181928 Hyoscyamine Sulfate 0.125 Mg Tab.subl, 1-2 TAB SL Q4H Prescribed by: STEVE ANTONIO on 09/29/152104 Ketorolac Tromethamine 10 Mg Tablet, 10 MG PO Q6H Prescribed by: STEVE ANTONIO on 09/29/152104 Tramadol Hcl 50 Mg Tablet, 50 MG PO Q4H PRN for PAIN Prescribed by: STEPHEN OCONNOR on 01/29/15 1620 Patient Home Medication List Home Medication List Reviewed: Yes Review of Systems Review of Systems Constitutional: see HPI; No chills; fever EENTM: No Symptoms Reported Respiratory: No Symptoms Reported Cardiovascular: No Symptoms Reported Gastrointestinal: See HPI, Diarrhea Genitourinary: No Symptoms Reported Musculoskeletal: no symptoms reported Skin: no symptoms reported Psychiatric/Neurological: Headache (global); Denies Weakness Endocrine: No Symptoms Reported All Other Systems Reviewed Negative Unless Noted: Yes Past Ifzlfwt-Fbnsri-Essfxg Hx Past Med/Social Hx: Reviewed Nursing Past Med/Soc Hx Patient Social History Alcohol Use: Denies Use Recreational Drug Use: No Smoking Status: Never a Smoker 2nd Hand Smoke Exposure: No Recent Foreign Travel: No Contact w/Someone Who Travel: No Recent Infectious Disease Expo: No Physical Abuse: No Sexual Abuse: No Mistreated: No Fear: No Seasonal Allergies Seasonal Allergies: No Past Medical History Surgeries: Yes (OVARIAN CYST REMOVAL AGE 14) Adenoidectomy, Tonsillectomy Respiratory: No Cardiac: No Neurological: Yes Headaches /Migraines Reproductive Disorders: Yes Female Reproductive Disorders: Menstrual Problems, Ovarian Cyst, Polycystic Ovarian Dis Genitourinary: No Gastrointestinal: Yes Hiatal Hernia, Irritable Bowel Musculoskeletal: No Endocrine: No Cancer: No Psychosocial: No Integumentary: No Blood Disorders: Yes (VON WELLABRAND'S DISEASE) Family Medical History Reviewed Nursing Family Hx No Pertinent Family Hx Physical Exam Vital Signs Vital Signs - First Documented 05/29/18 17:35 Temp 98.3 Pulse 89 Resp 16 B/P (MAP) 150/72 (98) Pulse Ox 98 Capillary Refill : Less Than 3 Seconds Height/Weight/BMI Height: 5'7.00" Weight: 250lbs. oz. 113.919473ll; 36.49 BMI Method:Stated General Appearance: WD/WN, no apparent distress Neck: full range of motion, supple Respiratory: lungs clear, normal breath sounds Cardiovascular: regular rate, rhythm, no murmur Gastrointestinal: normal bowel sounds, non tender, soft Extremities: non-tender, normal inspection Back: normal inspection, no CVA tenderness, no vertebral tenderness Neurologic/Psychiatric: alert, normal mood/affect, oriented x 3 Skin: normal color, warm/dry Progress/Results/Core Measures Results/Orders Lab Results Laboratory Tests Test 05/29/18 17:35 05/29/18 18:54 Range/Units Urine Color YELLOW Urine Clarity SLIGHTLY CLOUDY Urine pH 6 5-9 Urine Specific [place] 1.015 L 1.016-1.022 Urine Protein NEGATIVE NEGATIVE Urine Glucose (UA) NEGATIVE NEGATIVE Urine Ketones NEGATIVE NEGATIVE Urine Nitrite NEGATIVE NEGATIVE Urine Bilirubin NEGATIVE NEGATIVE Urine Urobilinogen NORMAL NORMAL MG/DL Urine Leukocyte Esterase 3+ H NEGATIVE Urine RBC (Auto) 5+ H NEGATIVE Urine RBC >100 H /HPF Urine WBC 25-50 H /HPF Urine Squamous Epithelial Cells 2-5 /HPF Urine Renal Epithelial Cells NONE /HPF Urine Crystals NONE /LPF Urine Bacteria TRACE /HPF Urine Casts NONE /LPF Urine Mucus NEGATIVE /LPF Urine Culture Indicated YES Urine Test NEGATIVE NEGATIVE White Blood Count 10.9 4.3-11.0 10^3/uL Red Blood Count 4.77 4.35-5.85 10^6/uL Hemoglobin 13.0 11.5-16.0 G/DL Hematocrit 40 35-52 % Mean Corpuscular Volume 83 80-99 FL Mean Corpuscular Hemoglobin 27 25-34 PG Mean Corpuscular Hemoglobin Concent 33 32-36 G/DL Red Cell Distribution Width 13.8 10.0-14.5 % Platelet Count 282 130-400 10^3/uL Mean Platelet Volume 9.8 7.4-10.4 FL Neutrophils (%) (Auto) 64 42-75 % Lymphocytes (%) (Auto) 27 12-44 % Monocytes (%) (Auto) 7 0-12 % Eosinophils (%) (Auto) 2 0-10 % Basophils (%) (Auto) 0 0-10 % Neutrophils # (Auto) 7.0 1.8-7.8 X 10^3 Lymphocytes # (Auto) 2.9 1.0-4.0 X 10^3 Monocytes # (Auto) 0.7 0.0-1.0 X 10^3 Eosinophils # (Auto) 0.2 0.0-0.3 10^3/uL Basophils # (Auto) 0.0 0.0-0.1 10^3/uL Sodium Level 141 135-145 MMOL/L Potassium Level 3.9 3.6-5.0 MMOL/L Chloride Level 100 98-107 MMOL/L Carbon Dioxide Level 27 21-32 MMOL/L Anion Gap 14 5-14 MMOL/L Blood Urea Nitrogen 23 H 7-18 MG/DL Creatinine 1.20 0.60-1.30 MG/DL Estimat Glomerular Filtration Rate 55 BUN/Creatinine Ratio 19 Glucose Level 106 H 70-105 MG/DL Calcium Level 9.8 8.5-10.1 MG/DL Corrected Calcium 9.6 8.5-10.1 MG/DL Total Bilirubin 0.3 0.1-1.0 MG/DL Aspartate Amino Transf (AST/SGOT) 27 5-34 U/L Alanine Aminotransferase (ALT/SGPT) 31 0-55 U/L Alkaline Phosphatase 124 40-136 U/L Total Protein 7.8 6.4-8.2 GM/DL Albumin 4.2 3.2-4.5 GM/DL Lipase 27 8-78 U/L My Orders Orders - JARED VASQUEZ MD Saline Lock/Iv-Start (05/29/18 18:38) Ns Iv 1000 Ml (Sodium Chloride 0.9%) (05/29/18 18:38) Promethazine Injection (Phenergan Injec (05/29/18 18:38) Fentanyl Injection (Sublimaze Injection (05/29/18 18:38) Ketorolac Injection (Toradol Injection) (05/29/18 18:38) Cephalexin Capsule (Keflex Capsule) (05/29/18 19:22) Medications Given in ED Current Medications Medications Dose Ordered Sig/Connor Route Start Time Stop Time Status Last Admin Dose Admin Sodium Chloride 1,000 ml @ 0 mls/hr Q0M ONCE IV 05/29/18 18:38 05/29/18 18:41 DC 05/29/18 18:50 1,000 MLS/HR Vital Signs/I&O 05/29/18 17:35 Temp 98.3 Pulse 89 Resp 16 B/P (MAP) 150/72 (98) Pulse Ox 98 Blood Pressure Mean: 98 Progress Progress Note : Progress Note Seen and evaluated. IV, labs, UA, normal saline 1 L bolus, Phenergan 25 mg IV, Toradol 30 mg IV, fentanyl 50 g IV ordered. Monitor patient. 1924: Labs reviewed and did not show any findings except for urinary tract infection. Keflex 500 mg by mouth ordered. Patient is feeling better. 2006: Overall improved. Discharged home with return precautions. Patient and family verbalize understanding instructions and agreement with plan. Departure Impression Primary Impression: Urinary tract infection Qualified Codes: N30.01 - Acute cystitis with hematuria Additional Impression: Vomiting and diarrhea Disposition: HOME, SELF-CARE Condition: Improved Departure-Patient Inst. Decision time for Depature: 19:26 Referrals: BETH HERNÁNDEZ MD (PCP) Primary Care Physician Patient Instructions: Acute Abdomen (Belly Pain), Adult (DC), Diarrhea in Adolescents and Adults, Nausea and Vomiting, Adult (DC), Urinary Tract Infection , Adult (DC) Add. Discharge Instructions: All discharge instructions reviewed with patient and/or family. Voiced understanding. Continue medications as previously prescribed. Take new prescription as prescribed. Follow-up with your Dr. in a few days for recheck. Return for worse pain, fever, vomiting, weakness, breathing problems or other concerns as needed. Drink plenty of fluids and use clear liquid or light diet for the next 24 hours and then advance as tolerated. Scripts Cephalexin (Cephalexin) 500 Mg Tablet 500 MG PO BID, #6 TAB 0 Refills Prov: JARED VASQUEZ MD 05/29/18 JARED VASQUEZ MD May 29, 2018 18:41
[2018-05-29 19:05] LABS: BASOPHILS % (AUTO) 0 % (0-10); EOSINOPHILS # (AUTO) 0.2 10^3/uL (0.0-0.3); EOSINOPHILS % (AUTO) 2 % (0-10); HEMATOCRIT 40 % (35-52); LYMPHOCYTES # (AUTO) 2.9 X 10^3 (1.0-4.0); LYMPHOCYTES % (AUTO) 27 % (12-44); MEAN CORPUSCULAR HEMOGLOBIN 27 PG (25-34); MEAN CORPUSCULAR HGB CONC 33 G/DL (32-36); MEAN CORPUSCULAR VOLUME 83 FL (80-99); MEAN PLATELET VOLUME 9.8 FL (7.4-10.4); MONOCYTES # (AUTO) 0.7 X 10^3 (0.0-1.0); MONOCYTES % (AUTO) 7 % (0-12); NEUTROPHILS % (AUTO) 64 % (42-75); PLATELET COUNT 282 10^3/uL (130-400); RED BLOOD COUNT 4.77 10^6/uL (4.35-5.85); RED CELL DISTRIBUTION WIDTH 13.8 % (10.0-14.5); WHITE BLOOD COUNT 10.9 10^3/uL (4.3-11.0)
[2018-05-29 19:20] LABS: ALBUMIN 4.2 GM/DL (3.2-4.5); BILIRUBIN,TOTAL 0.3 MG/DL (0.1-1.0); CALCIUM 9.8 MG/DL (8.5-10.1); CREATININE SERUM 1.2 MG/DL (0.60-1.30); POTASSIUM 3.9 MMOL/L (3.6-5.0); TOTAL PROTEIN 7.8 GM/DL (6.4-8.2)
[2018-05-29] MEDS ORDERED: CEPHALEXIN 250 MG (KEFLEX) CAP PO STA (19:22)
[2018-05-29] MEDS ORDERED: CEPH500T PO (19:29)
[2018-05-29 20:34] VITALS: BP 120/62
== END 2018-05-29 20:26 | disposition home or self-care (01) ==
LOC: EDUNIT# 16:26 → ER 16:28
DX: N39.0 Urinary tract infection, site not specified (principal); R11.10 Vomiting, unspecified; R19.7 Diarrhea, unspecified; G43.909 Migraine, unspecified, not intractable, without status migrainosus; Z90.89 Acquired absence of other organs; Z88.5 Allergy status to narcotic agent; Z87.19 Personal history of other diseases of the digestive system; Z91.040 Latex allergy status; Z91.030 Bee allergy status
CPT/HCPCS: 36415; 80053; 81000; 83690; 84703; 85025; 87088; 96361; 96374; 96375

== ENCOUNTER 2018-07-09 10:39 | Emergency (ER) | payer MEDICAID ==
[~2018-07-09] VITALS: Ht 172.7 cm; Wt 117.9 kg
[~2018-07-09 10:39] MED LIST changes: +CEPH500T PO
[2018-07-09] MEDS ORDERED: ONDANSETRON 4 MG/2 ML (SDV) Z0FRAN IVP ONE (12:30)
[2018-07-09] MEDS ORDERED: KETOROLAC 30 MG/ML VIAL IVP ONE (12:30)
[2018-07-09] MEDS ORDERED: HYOSCYAMINE 0.125 MG (LEVSIN) TAB PO ONE (12:30)
--- NOTE | 2018-07-09 12:34 | ED GI ---
General Chief Complaint: Abdominal/GI Problems Stated Complaint: VOMITING Nursing Triage Note: AMB TO ROOM WITH MOTHER REPORTS HAS HAD VOMITING AND DIARRHEA SINCE WENT THROUGH DRIVE THROUGH TO GET HAMBURGER AND NOTICED AFTER EATING IT WAS RAW. Sepsis Screen: No Definite Risk Source of Information: Patient Exam Limitations: No Limitations History of Present Illness Date Seen by Provider: Jul 09, 2018 Time Seen by Provider: 12:31 Initial Comments To ER per private vehicle accompanied by mother with reports of nausea vomiting and diarrhea since last night. She ate [employer] drive-through in [place] last night at about 8 PM. She noticed her hamburger to taste funny and then she opened it and it appeared raw. At about 2 AM she awakened with abdominal cramping nausea vomiting and diarrhea which has persisted until this point. She' s had too many episodes to count. Diarrhea is without obvious blood or mucus. She does have a history of C. difficile colitis and she did just start amoxicillin for "tonsil infection" with her first dose being yesterday morning. Timing/Duration: 12-24 Hours Severity/Quality: Moderate Location: Generalized Abdomen Radiation: No Radiation Associated Symptoms: Fever/Chills (chills but no fever), Nausea/Vomiting Allergies and Home Medications Allergies Coded Allergies: codeine (Unverified Allergy, Unknown, 05/29/18) latex (Unverified Allergy, Unknown, 01/29/15) Uncoded Allergies: BEE STING (Allergy, Unknown, 01/29/15) Home Medications Amoxicillin/Potassium Clav 1 Each Tablet, 1 EACH PO BID Prescribed by: JARED VASQUEZ on 02/01/182123 Cephalexin 500 Mg Tablet, 500 MG PO BID Prescribed by: JARED VASQUEZ on 05/29/181928 Hyoscyamine Sulfate 0.125 Mg Tab.subl, 1-2 TAB SL Q4H Prescribed by: STEVE ANTONIO on 09/29/152104 Ketorolac Tromethamine 10 Mg Tablet, 10 MG PO Q6H Prescribed by: STEVE ATNONIO on 09/29/152104 Tramadol Hcl 50 Mg Tablet, 50 MG PO Q4H PRN for PAIN Prescribed by: STEPHEN OCONNOR on 01/29/15 1620 Patient Home Medication List Home Medication List Reviewed: Yes Review of Systems Review of Systems Constitutional: see HPI, chills; No fever EENTM: No Symptoms Reported Respiratory: No Symptoms Reported Cardiovascular: No Symptoms Reported Gastrointestinal: See HPI, Abdominal Pain (lower abdominal cramping), Diarrhea , Nausea, Vomiting Genitourinary: No Symptoms Reported Musculoskeletal: no symptoms reported Skin: no symptoms reported Psychiatric/Neurological: No Symptoms Reported Endocrine: No Symptoms Reported Past Ezvnaag-Zyzstv-Tfcxuz Hx Patient Social History Alcohol Use: Denies Use Recreational Drug Use: No Smoking Status: Never a Smoker 2nd Hand Smoke Exposure: No Recent Foreign Travel: No Contact w/Someone Who Travel: No Recent Infectious Disease Expo: No Seasonal Allergies Seasonal Allergies: No Past Medical History Surgeries: Yes (OVARIAN CYST REMOVAL AGE 14) Adenoidectomy, Tonsillectomy Respiratory: No Cardiac: No Neurological: Yes Headaches /Migraines Reproductive Disorders: Yes Female Reproductive Disorders: Menstrual Problems, Ovarian Cyst, Polycystic Ovarian Dis Genitourinary: No Gastrointestinal: Yes Hiatal Hernia, Irritable Bowel Musculoskeletal: No Endocrine: No Cancer: No Psychosocial: No Integumentary: No Blood Disorders: Yes (VON WELLABRAND'S DISEASE) Family Medical History No Pertinent Family Hx Physical Exam Vital Signs Vital Signs - First Documented 07/09/18 12:04 Temp 100.0 Pulse 126 Resp 18 B/P (MAP) 120/83 (95) Pulse Ox 99 O2 Delivery Room Air Capillary Refill : Less Than 3 Seconds Height/Weight/BMI Height: 5'8.00" Weight: 260lbs. oz. 117.601333qe; 36.49 BMI Method:Stated General Appearance: WD/WN, no apparent distress, obese HEENT: PERRL/EOMI, normal ENT inspection Neck: non-tender, full range of motion Respiratory: normal breath sounds, no respiratory distress, no accessory muscle use Cardiovascular: no murmur, tachycardia Gastrointestinal: normal bowel sounds, non tender, soft Extremities: normal range of motion, non-tender Neurologic/Psychiatric: alert, normal mood/affect, oriented x 3 Skin: normal color, warm/dry Progress/Results/Core Measures Results/Orders Lab Results Laboratory Tests Test 07/09/18 12:28 Range/Units White Blood Count 9.8 4.3-11.0 10^3/uL Red Blood Count 4.95 4.35-5.85 10^6/uL Hemoglobin 13.1 11.5-16.0 G/DL Hematocrit 40 35-52 % Mean Corpuscular Volume 81 80-99 FL Mean Corpuscular Hemoglobin 27 25-34 PG Mean Corpuscular Hemoglobin Concent 33 32-36 G/DL Red Cell Distribution Width 14.2 10.0-14.5 % Platelet Count 303 130-400 10^3/uL Mean Platelet Volume 10.2 7.4-10.4 FL Neutrophils (%) (Auto) 93 H 42-75 % Lymphocytes (%) (Auto) 3 L 12-44 % Monocytes (%) (Auto) 3 0-12 % Eosinophils (%) (Auto) 0 0-10 % Basophils (%) (Auto) 0 0-10 % Neutrophils # (Auto) 9.1 H 1.8-7.8 X 10^3 Lymphocytes # (Auto) 0.3 L 1.0-4.0 X 10^3 Monocytes # (Auto) 0.3 0.0-1.0 X 10^3 Eosinophils # (Auto) 0.0 0.0-0.3 10^3/uL Basophils # (Auto) 0.0 0.0-0.1 10^3/uL Neutrophils % (Manual) 83 % Lymphocytes % (Manual) 3 % Monocytes % (Manual) 4 % Band Neutrophils 10 % Toxic Granulation 2+ Dohle Bodies SLIGHT Blood Morphology Comment NORMAL Sodium Level 141 135-145 MMOL/L Potassium Level 4.0 3.6-5.0 MMOL/L Chloride Level 102 98-107 MMOL/L Carbon Dioxide Level 22 21-32 MMOL/L Anion Gap 17 H 5-14 MMOL/L Blood Urea Nitrogen 21 H 7-18 MG/DL Creatinine 1.19 0.60-1.30 MG/DL Estimat Glomerular Filtration Rate 55 BUN/Creatinine Ratio 18 Glucose Level 161 H 70-105 MG/DL Calcium Level 9.4 8.5-10.1 MG/DL Corrected Calcium 9.1 8.5-10.1 MG/DL Total Bilirubin 0.6 0.1-1.0 MG/DL Aspartate Amino Transf (AST/SGOT) 23 5-34 U/L Alanine Aminotransferase (ALT/SGPT) 31 0-55 U/L Alkaline Phosphatase 115 40-136 U/L Total Protein 8.0 6.4-8.2 GM/DL Albumin 4.4 3.2-4.5 GM/DL Lipase 13 8-78 U/L Serum Test, Qualitative NEGATIVE NEGATIVE Micro Results Microbiology 07/09/18 C. difficile GDH Antigen & Toxins - Final, Resulted 07/09/18 Stool Culture, Resulted Pending My Orders Orders - MARCELA WHITMORE APRN Cbc With Automated Diff (07/09/18 12:29) Comprehensive Metabolic Panel (07/09/18 12:29) Lipase (07/09/18 12:29) Ua Culture If Indicated (07/09/18 12:29) Hcg,Qualitative Serum (07/09/18 12:29) Iv Heplock-Insert (Order) (07/09/18 12:29) C Difficile Ag + Toxin A/B. (07/09/18 12:29) Stool Culture (07/09/18 12:29) Lactated Ringers (Lr 1000 Ml Iv Solution (07/09/18 12:30) Ondansetron Injection (Zofran Injectio (07/09/18 12:30) Hyoscyamine Sl Tablet (Levsin Sl Tablet) (07/09/18 12:30) Ketorolac Injection (Toradol Injection) (07/09/18 12:30) Manual Differential (07/09/18 12:28) Lactated Ringers (Lr 1000 Ml Iv Solution (07/09/18 14:30) Promethazine Injection (Phenergan Injec (07/09/18 14:30) Medications Given in ED Current Medications Medications Dose Ordered Sig/Connor Route Start Time Stop Time Status Last Admin Dose Admin Hyoscyamine Sulfate 0.25 mg ONCE ONCE PO 07/09/18 12:30 07/09/18 12:32 DC 07/09/18 12:40 0.25 MG Ketorolac Tromethamine 15 mg ONCE ONCE IVP 07/09/18 12:30 07/09/18 12:32 DC 07/09/18 12:45 15 MG Ondansetron HCl 8 mg ONCE ONCE IVP 07/09/18 12:30 07/09/18 12:32 DC 07/09/18 12:40 8 MG Promethazine HCl 25 mg ONCE ONCE IVP 07/09/18 14:30 07/09/18 14:31 DC 07/09/18 14:31 25 MG Vital Signs/I&O 07/09/18 12:04 Temp 100.0 Pulse 126 Resp 18 B/P (MAP) 120/83 (95) Pulse Ox 99 O2 Delivery Room Air Blood Pressure Mean: 95 Departure Impression Primary Impression: Nausea vomiting and diarrhea Disposition: 01 HOME, SELF-CARE Condition: Stable Departure-Patient Inst. Decision time for Depature: 15:18 Referrals: BETH HERNÁNDEZ MD (PCP/Family) Primary Care Physician Patient Instructions: [id number] Add. Discharge Instructions: 1. Drink plenty of fluids to stay hydrated. Pedialyte or Gatorade or water or fine choices. Take nausea medication as needed. Take the abdominal cramping medication as needed. Return to ER for any bloody stools or intolerable pain. Follow-up with your primary care doctor next week. All discharge instructions reviewed with patient and/or family. Voiced understanding. Scripts Hyoscyamine Sulfate (Levsin-Sl) 0.125 Mg Tab.subl 0.125 MG SL Q4H PRN for CRAMPS, #14 TAB Prov: MARCELA WHITMORE ASSOCIATE THEATRE PROFESSOR 07/09/18 Ondansetron HCl (Zofran) 8 Mg Tablet 8 MG PO Q6H PRN for NAUSEA/VOMITING, #14 TAB Prov: MARCELA WHITMORE ASSOCIATE THEATRE PROFESSOR 07/09/18 MARCELA WHITMORE ASSOCIATE THEATRE PROFESSOR Jul 09, 2018 12:34
[2018-07-09] MEDS: LACTATED RINGERS 1,000 ML IV SCH ×5 (12:40→15:19)
[2018-07-09 12:42] LABS: BASOPHILS % (AUTO) 0 % (0-10); EOSINOPHILS % (AUTO) 0 % (0-10); HEMATOCRIT 40 % (35-52); HEMOGLOBIN 13.1 G/DL (11.5-16.0); LYMPHOCYTES # (AUTO) 0.3 X 10^3 (1.0-4.0); LYMPHOCYTES % (AUTO) 3 % (12-44); MEAN CORPUSCULAR HEMOGLOBIN 27 PG (25-34); MEAN CORPUSCULAR HGB CONC 33 G/DL (32-36); MEAN CORPUSCULAR VOLUME 81 FL (80-99); MEAN PLATELET VOLUME 10.2 FL (7.4-10.4); MONOCYTES # (AUTO) 0.3 X 10^3 (0.0-1.0); MONOCYTES % (AUTO) 3 % (0-12); NEUTROPHILS # (AUTO) 9.1 X 10^3 (1.8-7.8); NEUTROPHILS % (AUTO) 93 % (42-75); PLATELET COUNT 303 10^3/uL (130-400); RED BLOOD COUNT 4.95 10^6/uL (4.35-5.85); RED CELL DISTRIBUTION WIDTH 14.2 % (10.0-14.5); WHITE BLOOD COUNT 9.8 10^3/uL (4.3-11.0)
[2018-07-09 12:54] LABS: ALBUMIN 4.4 GM/DL (3.2-4.5); BILIRUBIN,TOTAL 0.6 MG/DL (0.1-1.0); CALCIUM 9.4 MG/DL (8.5-10.1); CREATININE SERUM 1.19 MG/DL (0.60-1.30)
[2018-07-09 13:53] LABS: BAND NEUTROPHILS 10 %; LYMPHOCYTES % (MANUAL) 3 %; MONOCYTES % (MANUAL) 4 %; NEUTROPHILS % (MANUAL) 83 %; RBC MORPH NORMAL; TOXIC GRANULATION/VACUOLAZATIO 2+
[2018-07-09] MEDS ORDERED: PROMETHAZINE INJ 25 MG/ML (PHENERGAN) AMP IVP ONE (14:30)
[2018-07-09] MEDS ORDERED: ONDA8TAB6 PO (15:21)
[2018-07-09] MEDS ORDERED: HYOS0.1283 SL (15:21)
[2018-07-09 16:39] VITALS: BP 119/65
== END 2018-07-09 16:39 | disposition home or self-care (01) ==
LOC: EDUNIT# 10:39 → ER 10:41
DX: R11.2 Nausea with vomiting, unspecified (principal); R19.7 Diarrhea, unspecified; G43.909 Migraine, unspecified, not intractable, without status migrainosus; Z87.448 Personal history of other diseases of urinary system; Z88.5 Allergy status to narcotic agent; Z91.040 Latex allergy status; Z87.19 Personal history of other diseases of the digestive system; Z90.89 Acquired absence of other organs; Z98.890 Other specified postprocedural states
CPT/HCPCS: 36415; 80053; 83690; 84703; 85007; 85027; 87015; 87045; 87046; 87324; 87449; 87899

== ENCOUNTER 2018-08-15 14:48 | Outpatient (RCR) | payer MEDICAID, OTHER ==
[2018-07-04 14:04] LABS: BASOPHILS % (AUTO) 0 % (0-10); EOSINOPHILS # (AUTO) 0.1 10^3/uL (0.0-0.3); EOSINOPHILS % (AUTO) 1 % (0-10); HEMATOCRIT 39 % (35-52); HEMOGLOBIN 12.7 G/DL (11.5-16.0); LYMPHOCYTES # (AUTO) 2.6 X 10^3 (1.0-4.0); LYMPHOCYTES % (AUTO) 35 % (12-44); MEAN CORPUSCULAR HEMOGLOBIN 27 PG (25-34); MEAN CORPUSCULAR HGB CONC 33 G/DL (32-36); MEAN CORPUSCULAR VOLUME 81 FL (80-99); MEAN PLATELET VOLUME 9.8 FL (7.4-10.4); MONOCYTES # (AUTO) 0.7 X 10^3 (0.0-1.0); MONOCYTES % (AUTO) 9 % (0-12); NEUTROPHILS # (AUTO) 4.1 X 10^3 (1.8-7.8); NEUTROPHILS % (AUTO) 55 % (42-75); PLATELET COUNT 310 10^3/uL (130-400); RED CELL DISTRIBUTION WIDTH 14.2 % (10.0-14.5); WHITE BLOOD COUNT 7.5 10^3/uL (4.3-11.0)
[2018-07-04 14:26] LABS: PROTHROMBIN TIME PATIENT 13.1 SEC (12.2-14.7)
[2018-07-04 14:27] LABS: ALANINE AMINOTRANSFERASE 28 U/L (0-55); ALBUMIN 4.4 GM/DL (3.2-4.5); ALKALINE PHOSPHATASE 126 U/L (40-136); BILIRUBIN,TOTAL 0.3 MG/DL (0.1-1.0); BUN/CREATININE RATIO 21; CALCIUM 9.9 MG/DL (8.5-10.1); CARBON DIOXIDE 26 MMOL/L (21-32); CHLORIDE 101 MMOL/L (98-107); CREATININE SERUM 1.07 MG/DL (0.60-1.30); GFR ESTIMATED > 60; GLUCOSE 107 MG/DL (70-105); SODIUM 140 MMOL/L (135-145); TOTAL PROTEIN 7.9 GM/DL (6.4-8.2)
[2018-07-22 06:39] LABS: MISC LAB TEST & RESULT VWF COLLAG BND
[~2018-08-15 14:48] MED LIST changes: +ONDA8TAB6 PO
[2018-08-15 15:48] LABS: RETICULOCYTE % 1.92 % (0.50-2.40)
== END 2018-10-02 | disposition home or self-care (01) ==
LOC: ONC 14:48
PROVIDERS: ATTEND Internal Medicine Hematology & Oncology
DX: D68.0 Von Willebrand disease (principal)
CPT/HCPCS: 36415; 80053; 82728; 83540; 85025; 85045; 85240; 85245; 85246; 85610; 85730; 99213

== ENCOUNTER → 2018-09-06 | Outpatient (CLI) | payer MEDICAID ==
--- NOTE | 2018-09-06 18:12 | Diagnostic Imaging Report ---
PROCEDURE: US PELVIC (NON OB) TECHNIQUE: Multiple real-time grayscale images were obtained over the pelvis in various projections transabdominally. INDICATION: Dysfunctional uterine bleeding. FINDINGS: The uterus measures 8.2 cm. There is no fibroid or myometrial mass. The endometrium is 9 mm thick, homogenous. The ovaries appeared normal. There is color Doppler flow to the adnexa. No evidence for torsion. No ascites. No acute finding. IMPRESSION: Normal pelvic ultrasound transabdominal. Dictated on workstation # [id number]
== END ==
LOC: RAD 14:13
PROVIDERS: ATTEND Obstetrics & Gynecology
DX: N92.0 Excessive and frequent menstruation with regular cycle (principal)
CPT/HCPCS: 76856

== ENCOUNTER → 2018-09-12 | Outpatient (CLI) | payer MEDICAID | END | disposition home or self-care (01) | LOC: PREOP 05:53 | PROVIDERS: ATTEND Obstetrics & Gynecology | DX: Z01.818 Encounter for other preprocedural examination (principal) ==